=== PATIENT | male | born 1960 | race Caucasian/White ===

== ENCOUNTER 2018-05-17 12:06 | Emergency (ER) | payer OTHER ==
[~2018-05-17] VITALS: Ht 182.9 cm; Wt 106.6 kg
[~2018-05-17 12:06] MED LIST: AMLO5TAB2 PO; BSC10SU PR; DCS100C PO; DZPM2T PO; ENXP30I.3 SC; IBP600T1 PO; IPRA3AMP19 IH; LOSA100T16 PO; MAGN-47 PO; NFGUAR168P PO; OXYC-272 PO
--- NOTE | 2018-05-17 13:22 | NUR ---
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
--- NOTE | 2018-05-17 13:53 | Diagnostic Imaging Report ---
INDICATION: Crush injury. FINDINGS: There is transversely oriented full-thickness fracture of the distal neck of the proximal phalanx of the fifth finger. The distal fragment of the proximal phalanx is believed to be rotated 90 degrees dorsally. The middle and distal phalanges are intact. There are extensive soft tissue irregularities about the finger greatest along the level of the shaft of the middle phalanx. The terminal tuft is intact. The metacarpophalangeal joint is unremarkable. IMPRESSION: Full-thickness transversely oriented extra-articular fracture of the distal neck of the proximal phalanx of the fifth finger with its distal fragment believed to be rotated 90 degrees dorsally. Soft tissue irregularities. No retained opaque foreign body. Remaining osseous structures intact. Dictated by: Dictated on workstation # [id number]
[2018-05-17] MEDS ORDERED: CEPHALEXIN 250 MG (KEFLEX) CAP PO ONE (14:15)
[2018-05-17] MEDS ORDERED: LIDOCAINE 1% INJ 20 ML 20 ML VIAL INJ ONE (14:15)
[2018-05-17] MEDS ORDERED: ACHD5005 PO (14:37)
[2018-05-17] MEDS ORDERED: CEPH-507 PO (14:37)
--- NOTE | 2018-05-17 14:39 | ED Upper Extremity ---
General Chief Complaint: Upper Extremity Stated Complaint: FINGER INJ Nursing Triage Note: AT 0830 THIS AM, PT DROPPED @150LBS PIPE ON R-5TH FINGER. DRESSING IN PLACE AT THIS TIME PER URGENT CARE. PT HERE FROM URGENT CARE TO SEEK ORTHO CARE Nursing Sepsis Screen: No Definite Risk Source: patient Exam Limitations: no limitations History of Present Illness Date Seen by Provider: May 17, 2018 Time Seen by Provider: 12:59 Initial Comments 57 year old male who was sent to the emergency room from [facility] for further evaluation of his fracture of his right 5th finger. He reports that at 0830 this am he was at work when a 150lb pipe dropped and then it rolled off of his finger. He denies pain at this time. He has full movement of right fifth finger. He has a 1cm laceration to the [place] surface of his right 5th finger. Denies other injuries. Onset: this morning Pain/Injury Location: right 5th finger Method of Injury: direct blow Modifying Factors: Worse With Movement Allergies and Home Medications Allergies Coded Allergies: No Known Drug Allergies (Unverified , 08/05/10) Home Medications Amlodipine Besylate 5 Mg Tablet, 5 MG PO DAILY, (Reported) Cephalexin 500 Mg Capsule, 500 MG PO QID Prescribed by: JOHANA MENDEZ on 05/17/18 1437 Diazepam 2 Mg Tab, 2 EACH PO TID PRN, (Reported) Docusate Sodium 100 Mg Capsule, 100 MG PO BID, (Reported) Guar Gum 6 Oz Powder, 4 GM PO BID, (Reported) Hydrocodone Bit/Acetaminophen 1 Tab Tab, 1-2 EACH PO Q6H PRN for PAIN-MODERATE Prescribed by: JOHANA MENDEZ on 05/17/18 1437 Ibuprofen 600 Mg Tablet, 1 EACH PO QID PRN, (Reported) Losartan Potassium 100 Mg Tablet, 1 EACH PO DAILY, (Reported) Magnesium Hydroxide 400 Mg/5 Ml Oral.susp, 10 ML PO DAILY PRN, (Reported) Oxycodone Hcl/Acetaminophen 1 Tab Tablet, 1-2 TAB PO Q4H PRN, (Reported) Patient Home Medication List Home Medication List Reviewed: Yes Review of Systems Constitutional: see HPI; No chills, No fever Musculoskeletal: see HPI, joint pain (right 5th finger.) Skin: see HPI, other (laceration) All Other Systems Reviewed Negative Unless Noted: Yes Past Uehnydh-Uvovtu-Oozrrt Hx Past Med/Social Hx: Reviewed Nursing Past Med/Soc Hx Patient Social History Alcohol Use: Denies Use Recreational Drug Use: No Smoking Status: Unknown if Ever Smoked Recent Foreign Travel: No Contact w/Someone Who Travel: No Recent Infectious Disease Expo: No Recent Hopitalizations: Yes Past Medical History Surgeries: Yes Respiratory: Yes Cardiac: Yes Neurological: Yes Reproductive Disorders: No Gastrointestinal: No Musculoskeletal: Yes Endocrine: No Blood Disorders: No Family Medical History Reviewed Nursing Family Hx Physical Exam Vital Signs Vital Signs - First Documented 05/17/18 05/17/18 12:50 15:05 Temp 97.8 Pulse 72 Resp 18 B/P (MAP) 144/87 (106) Pulse Ox 99 O2 Delivery Room Air Capillary Refill : Less Than 3 Seconds Height, Weight, BMI Height: 6'" Weight: 235lbs. oz. 106.563405nf; BMI Method:Stated General Appearance: WD/WN, no apparent distress Cardiovascular: normal peripheral pulses, regular rate, rhythm, no edema, no gallop, no JVD, no murmur Respiratory: chest non-tender, lungs clear, normal breath sounds, no respiratory distress, no accessory muscle use Hand: Right (5th finger), laceration (1cm laceration to the [place] surface of the 5th finger. see images.), limited ROM Neurologic/Tendon: normal sensation, normal motor functions, normal tendon functions, responds to pain, no evidence tendon injury Neurologic/Psychiatric: alert, normal mood/affect, oriented x 3 Skin: normal color, warm/dry Procedures/Interventions Wound Location: Upper Extremities Other Wound Location pan[place] surface of right 5th finger Wound Length (cm): 1 Wound's Depth, Shape: superficial, linear Wound Explored: clean Irrigated w/ Saline (ccs): 200 Betadine Prep?: Yes Anesthesia: 1% Lidocaine Volume Anesthetic (ccs): 2 Suture: Prolene Suture Size: 4-0 Number of Sutures: 3 Progress The wound was anesthetized with 2ml of lidocaine with out epi and thoroughly irrigated with Betasept, Betadine and normal saline. The wound was closed with 3 simple interrupted sutures of 4-0 Prolene. Sterile dressing of Triple abx, telfa, soft roll was applied. Finger was placed in Alumafoam splint. Progress/Results/Core Measures Results/Orders My Orders Medications Given in ED Vital Signs/I&O Blood Pressure Mean: 106 Progress Progress Note : Time: 14:00 Progress Note I have seen and evaluated the patient. I have sent images and discussed the case with Dr. Blanca reservation clerk ortho and he then consulted Dr. Lizarraga hand surgeon who recommended irrigating the wound and closing the laceration loosely , placing the patient on antibiotics and having the patient follow up in his office Sunday. Dr. Blanca also recommended calling [facility] to discuss with reservation clerk ortho and Dr. Mundo Kyle Ortho recommended irrigating and closing the wound and having the patient follow up with hand surgeon of his choosing on Sunday. I have informed the patient of plan of care, plans for discharge, return precautions were given. The patient was placed in a finger splint until follow up. He agrees with plan of care. Diagnostic Imaging Diagonstic Imaging: Xray Plain Films/CT/US/NM/MRI: hand Comments NAME: [facility] REC#: [id number] PT STATUS: DEP ER : 1960 PHYSICIAN: JOHANA MENDEZ ADMIT DATE: 05/17/18/ER Signed Date of Exam: 05/17/18 FINGER(S) INDICATION: Crush injury. FINDINGS: There is transversely oriented full-thickness fracture of the distal neck of the proximal phalanx of the fifth finger. The distal fragment of the proximal phalanx is believed to be rotated 90 degrees dorsally. The middle and distal phalanges are intact. There are extensive soft tissue irregularities about the finger greatest along the level of the shaft of the middle phalanx. The terminal tuft is intact. The metacarpophalangeal joint is unremarkable. IMPRESSION: Full-thickness transversely oriented extra-articular fracture of the distal neck of the proximal phalanx of the fifth finger with its distal fragment believed to be rotated 90 degrees dorsally. Soft tissue irregularities. No retained opaque foreign body. Remaining osseous structures intact. Dictated by: Dictated on workstation # [id number] Dict: 05/17/18 1335 Trans: 05/17/181651 Interpreted by: VALERIE MOORE Electronically signed by: VALERIE MOORE 05/17/181651 Reviewed: Reviewed by Me Departure Impression Primary Impression: Finger fracture, right Qualified Codes: S62.636B - Displaced fracture of distal phalanx of right little finger, initial encounter for open fracture Disposition: 01 HOME, SELF-CARE Condition: Stable/Unchanged Departure-Patient Inst. Decision time for Depature: 14:35 Referrals: DANIELA LIZARRAGA FLOYD R MD (PCP/Family) Primary Care Physician Patient Instructions: Finger Fracture (DC) Add. Discharge Instructions: Take medications as directed. Ice to the sore areas at 20 minute intervals. Wear the splint at all times. Change the dressing twice a day. Return back to the emergency room for worsening symptoms, pain, signs of infection such as increased redness, swelling, drainage, pain, or any other concerns as needed. Call Dr. Lizarraga's office first thing Sunday morning for an appointment time. All discharge instructions reviewed with patient and/or family. Voiced understanding. Scripts Cephalexin (Keflex) 500 Mg Capsule 500 MG PO QID for 10 Days, #40 CAP Prov: JOHANA MENDEZ 05/17/18 Hydrocodone Bit/Acetaminophen (Hydrocodone/Acetaminophen 5/325mg Tablet) 1 Tab Tab 1-2 EACH PO Q6H PRN for PAIN-MODERATE MDD 10, #20 TAB Prov: JOHANA MENDEZ 05/17/18 Images Extremities-Upper 1 - Laceration Copy Copies To 1: DANIELA LIZARRAGA TRAVIS May 17, 2018 14:38
[2018-05-17 15:05] VITALS: BP 144/87
== END 2018-05-17 15:04 | disposition home or self-care (01) ==
LOC: EDUNIT# 12:06 → ER 12:07
DX: S62.636A Displaced fracture of distal phalanx of right little finger, initial encounter for closed fracture (principal); W23.1XXA Caught, crushed, jammed, or pinched between stationary objects, initial encounter; Y92.59 Other trade areas as the place of occurrence of the external cause; Y99.0 Civilian activity done for income or pay
CPT/HCPCS: 12001; 29130; 73140

== ENCOUNTER 2022-04-10 17:45 | Inpatient (IN) | payer BC, OTHER ==
[~2022-04-10] VITALS: Ht 182.9 cm; Wt 76.7 kg
[~2022-04-10 17:45] MED LIST changes: +ACHD5005 PO; +CEPH-507 PO
[2022-04-10] MEDS ORDERED: hydrALAZINE (APESOLINE) 20 MG/ML VIAL IV ONE ×3 (18:30→21:30)
[2022-04-10] MEDS ORDERED: amLODIPine 10 MG (NORVASC) TAB PO ONE (18:30)
[2022-04-10 18:31] LABS: BASOPHILS # (AUTO) 0.1 10^3/uL (0.0-0.1); BASOPHILS % (AUTO) 1 % (0-10); EOSINOPHILS % (AUTO) 0 % (0-10); HEMATOCRIT 44 % (40-54); HEMOGLOBIN 14.6 g/dL (13.3-17.7); LYMPHOCYTES # (AUTO) 2.2 10^3/uL (1.0-4.0); LYMPHOCYTES % (AUTO) 26 % (12-44); MEAN CORPUSCULAR HEMOGLOBIN 31 pg (25-34); MEAN CORPUSCULAR HGB CONC 34 g/dL (32-36); MEAN CORPUSCULAR VOLUME 92 fL (80-99); MEAN PLATELET VOLUME 10.4 fL (9.0-12.2); MONOCYTES # (AUTO) 0.9 10^3/uL (0.0-1.0); MONOCYTES % (AUTO) 10 % (0-12); NEUTROPHILS # (AUTO) 5.4 10^3/uL (1.8-7.8); NEUTROPHILS % (AUTO) 63 % (42-75); PLATELET COUNT 186 10^3/uL (130-400); WHITE BLOOD COUNT 8.6 10^3/uL (4.3-11.0)
[2022-04-10 18:47] LABS: CLARITY,URINE CLEAR; COLOR,URINE YELLOW; GLUCOSE, URINE (UA) NEGATIVE (NEGATIVE); KETONES,URINE TRACE (NEGATIVE); LEUKOCYTE ESTERASE ,URINE NEGATIVE (NEGATIVE); NITRITE,URINE NEGATIVE (NEGATIVE); PH,URINE 5.5 (5-9); PROTEIN,URINE 3+ (NEGATIVE)
[2022-04-10 18:49] LABS: ALBUMIN 3.7 GM/DL (3.2-4.5); POTASSIUM 3.9 MMOL/L (3.6-5.0)
[2022-04-10 18:50] LABS: CALCIUM 9.7 MG/DL (8.5-10.1)
[2022-04-10 18:52] LABS: TOTAL PROTEIN 7.5 GM/DL (6.4-8.2)
[2022-04-10 18:53] LABS: BILIRUBIN,TOTAL 0.9 MG/DL (0.1-1.0)
[2022-04-10 18:55] LABS: CREATININE SERUM 1.34 MG/DL (0.60-1.30)
[2022-04-10 18:56] LABS: BILIRUBIN,URINE 1+ (NEGATIVE)
[2022-04-10 18:57] LABS: BACTERIA,URINE NEGATIVE /HPF; RBC,URINE RARE /HPF; WBC,URINE RARE /HPF
--- NOTE | 2022-04-10 18:59 | Diagnostic Imaging Report ---
EXAMINATION: Chest 1 view HISTORY: Hypertension COMPARISON: None available. FINDINGS: Heart size is normal with prominence of the pulmonary vasculature. There are perihilar interstitial opacities present. No significant pleural effusion or pneumothorax. The osseous structures are intact. IMPRESSION: 1. Findings of pulmonary vasculature congestion with perihilar opacities. Facts favor pulmonary edema although pneumonia could cause a similar appearance in the appropriate clinical setting. Dictated by: Dictated on workstation # [id number]
[2022-04-10] MEDS ORDERED: NITROGLYCERIN 2% OINT 1 GM UNIT DOSE PACKET TOP ONE (19:30)
--- NOTE | 2022-04-10 19:36 | ED General ---
General Chief Complaint: Cardiac/General Problems Stated Complaint: ELEVATED BP Nursing Triage Note: patient ambulatory to ER w c/o high blood pressure. patient was seen at [facility] for concern for weightloss where they discovered the hypertension and advised he go to the ER. patient has lost over 65 pounds in the last year without trying. lack of appetite and energy. Source of Information: Patient Exam Limitations: No Limitations History of Present Illness Date Seen by Provider: Apr 10, 2022 Time Seen by Provider: 18:12 Initial Comments Here with report of 65 pound weight loss over the last year. Has not been seeing a doctor regularly recently and for the last several years. Has known hy pertension that is uncontrolled. States he previously was on amlodipine and losartan. Patient was concerned because of the weight loss that that is getting much more significant. He went to [facility] today and has appointment scheduled for a month and a half to establish care. He is worried mostly about the weight loss. Denies headache, fever, chills, nausea, vomiting, diarrhea or chest pain. Reports that he has markedly decreased appetite and is not sure what that is from. He is going to the bathroom okay. He smokes cigars but otherwise does not smoke, drink or use any drugs. No family history of significant for cancer but there is for diabetes. Timing/Duration: Other (1 year) Severity: Moderate Associated Systoms: No Cough, No Fever/Chills; Loss of Appetite; No Nausea/Vomiting, No Shortness of Air, No Weakness Allergies and Home Medications Allergies Coded Allergies: No Known Drug Allergies (Unverified , 08/05/10) Patient Home Medication List Home Medication List Reviewed: Yes Amlodipine Besylate (Amlodipine Besylate) 5 Mg Tablet, 5 MG PO DAILY, (Reported) Entered as Reported by: BA HALEY on 08/07/10 1003 Cephalexin (Keflex) 500 Mg Capsule, 500 MG PO QID Prescribed by: JOHANA MENDEZ on 05/17/18 1437 Diazepam (Valium 2 Mg Tab) 2 Mg Tab, 2 EACH PO TID PRN, (Reported) Entered as Reported by: BA HALEY on 08/07/10 1003 Docusate Sodium (Colace) 100 Mg Capsule, 100 MG PO BID, (Reported) Entered as Reported by: BA HALEY on 08/07/10 1003 Guar Gum (Benefiber (From Dietary, Do Not Enter On Apr)) 6 Oz Powder, 4 GM PO BID, (Reported) Entered as Reported by: BA HALEY on 08/07/10 100 Hydrocodone Bit/Acetaminophen (Lortab 5 Mg Tablet) 1 Tab Tab, 1-2 EACH PO Q6H PRN for PAIN-MODERATE Prescribed by: JOHANA MENDEZ on 05/17/18 1437 Ibuprofen (Motrin Tablet) 600 Mg Tablet, 1 EACH PO QID PRN, (Reported) Entered as Reported by: AGUSTINA DIAS on 08/11/10 1009 Losartan Potassium (Cozaar) 100 Mg Tablet, 1 EACH PO DAILY, (Reported) Entered as Reported by: BA HALEY on 08/07/10 1003 Magnesium Hydroxide (Milk Of Magnesia) 400 Mg/5 Ml Oral.susp, 10 ML PO DAILY PRN, (Reported) Entered as Reported by: BA HALEY on 08/07/10 100 Oxycodone Hcl/Acetaminophen (Percocet 10-325 Mg Tablet) 1 Tab Tablet, 1-2 TAB PO Q4H PRN, (Reported) Entered as Reported by: BA HALEY on 08/07/10 1003 Review of Systems Review of Systems Constitutional: No chills, No fever EENTM: no symptoms reported Respiratory: No cough, No short of breath Cardiovascular: No chest pain, No edema Gastrointestinal: loss of appetite; No nausea, No vomiting Genitourinary: no symptoms reported Musculoskeletal: No back pain, No muscle pain Skin: no symptoms reported Psychiatric/Neurological: No Symptoms Reported Past Ibnygfe-Tsriel-Zwzucw Hx Patient Social History Tobacco Use?: Yes Tobacco type used: Cigars Smoking Status: Current Everyday Smoker Substance use?: No Alcohol Use?: Yes Alcohol type: Beer Alcohol Frequency: Rarely Immunizations Up To Date COVID19 Vaccine Glue Bone Crusher: nazario Past Medical History Surgeries: Yes Respiratory: Yes Cardiac: Yes Neurological: Yes Reproductive Disorders: No Gastrointestinal: No Musculoskeletal: Yes Endocrine: No Blood Disorders: No Family Medical History Reviewed Nursing Family Hx Physical Exam Vital Signs Vital Signs - First Documented 04/10/22 04/10/22 17:57 19:30 Temp 36.2 Pulse 96 Resp 20 B/P (MAP) 222/126 (158) Pulse Ox 94 O2 Delivery Room Air Capillary Refill : Less Than 3 Seconds Height, Weight, BMI Height: 6'" Weight: 235lbs. oz. 106.679758lh; 23.00 BMI Method:Stated General Appearance: No Apparent Distress, WD/WN HEENT: PERRL/EOMI, Pharynx Normal Neck: Non Tender, Supple Respiratory: Lungs Clear, Normal Breath Sounds Cardiovascular: Regular Rate, Rhythm, No Murmur Gastrointestinal: Non Tender, Soft Back: Normal Inspection, No CVA Tenderness, No Vertebral Tenderness Extremity: Normal Range of Motion, Non Tender Neurologic/Psychiatric: Alert, Oriented x3 Procedures/Interventions Suture Size: 4-0 Progress/Results/Core Measures Suspected Sepsis SIRS Temperature: Pulse: 96 Respiratory Rate: 20 Laboratory Tests 04/10/22 18:20: White Blood Count 8.6 Blood Pressure 222 /126 Mean: 158 Laboratory Tests 04/10/22 18:20: Creatinine 1.34H, Platelet Count 186, Total Bilirubin 0.9 Results/Orders Lab Results Laboratory Tests Test 04/10/22 18:20 04/10/22 18:35 Range/Units White Blood Count 8.6 4.3-11.0 10^3/uL Red Blood Count 4.72 4.30-5.52 10^6/uL Hemoglobin 14.6 13.3-17.7 g/dL Hematocrit 44 40-54 % Mean Corpuscular Volume 92 80-99 fL Mean Corpuscular Hemoglobin 31 25-34 pg Mean Corpuscular Hemoglobin Concent 34 32-36 g/dL Red Cell Distribution Width 14.0 10.0-14.5 % Platelet Count 186 130-400 10^3/uL Mean Platelet Volume 10.4 9.0-12.2 fL Immature Granulocyte % (Auto) 0 % Neutrophils (%) (Auto) 63 42-75 % Lymphocytes (%) (Auto) 26 12-44 % Monocytes (%) (Auto) 10 0-12 % Eosinophils (%) (Auto) 0 0-10 % Basophils (%) (Auto) 1 0-10 % Neutrophils # (Auto) 5.4 1.8-7.8 10^3/uL Lymphocytes # (Auto) 2.2 1.0-4.0 10^3/uL Monocytes # (Auto) 0.9 0.0-1.0 10^3/uL Eosinophils # (Auto) 0.0 0.0-0.3 10^3/uL Basophils # (Auto) 0.1 0.0-0.1 10^3/uL Immature Granulocyte # (Auto) 0.0 0.0-0.1 10^3/uL Sodium Level 139 135-145 MMOL/L Potassium Level 3.9 3.6-5.0 MMOL/L Chloride Level 105 98-107 MMOL/L Carbon Dioxide Level 20 L 21-32 MMOL/L Anion Gap 14 5-14 MMOL/L Blood Urea Nitrogen 25 H 7-18 MG/DL Creatinine 1.34 H 0.60-1.30 MG/DL Estimat Glomerular Filtration Rate 60 BUN/Creatinine Ratio 19 Glucose Level 95 70-105 MG/DL Calcium Level 9.7 8.5-10.1 MG/DL Corrected Calcium 9.9 8.5-10.1 MG/DL Total Bilirubin 0.9 0.1-1.0 MG/DL Aspartate Amino Transf (AST/SGOT) 25 5-34 U/L Alanine Aminotransferase (ALT/SGPT) 26 0-55 U/L Alkaline Phosphatase 106 40-136 U/L Troponin I 0.085 H <0.028 NG/ML B-Type Natriuretic Peptide 1106.6 H <100.0 PG/ML Total Protein 7.5 6.4-8.2 GM/DL Albumin 3.7 3.2-4.5 GM/DL Urine Color YELLOW Urine Clarity CLEAR Urine pH 5.5 5-9 Urine Specific Sterling >=1.030 1.016-1.022 Urine Protein 3+ H NEGATIVE Urine Glucose (UA) NEGATIVE NEGATIVE Urine Ketones TRACE H NEGATIVE Urine Nitrite NEGATIVE NEGATIVE Urine Bilirubin 1+ H NEGATIVE Urine Urobilinogen 1.0 < = 1.0 MG/DL Urine Leukocyte Esterase NEGATIVE NEGATIVE Urine RBC (Auto) 1+ H NEGATIVE Urine RBC RARE /HPF Urine WBC RARE /HPF Urine Squamous Epithelial Cells NONE /HPF Urine Crystals NONE /LPF Urine Bacteria NEGATIVE /HPF Urine Casts PRESENT /LPF Urine Hyaline Casts 5-10 H /LPF Urine Mucus NEGATIVE /LPF Urine Culture Indicated NO My Orders Orders - ASH IBARRA MD Ed Iv/Invasive Line Start (04/10/22 18:25) Ekg Tracing (04/10/22 18:25) Monitor-Rhythm Ecg Trace Only (04/10/22 18:25) Chest 1 View, Ap/Pa Only (04/10/22 18:25) Bnp Manjeet (04/10/22 18:25) Cbc With Automated Diff (04/10/22 18:25) Comprehensive Metabolic Panel (04/10/22 18:25) Troponin I Manjeet (04/10/22 18:25) Ua Culture If Indicated (04/10/22 18:25) Amlodipine Tablet (Norvasc Tablet) (04/10/22 18:30) Hydralazine Injection (Apresoline Inject (04/10/22 18:30) Hydralazine Injection (Apresoline Inject (04/10/22 19:30) Nitroglycerin Ointment (Nitrobid Ointme (04/10/22 19:30) Furosemide Injection (Lasix Injection) (04/10/22 20:18) Aspirin Chewable Tablet (Baby Aspirin Ch (04/10/22 20:45) Metoprolol Succinate (Xl) Tab (Toprol Xl (04/10/22 20:45) Potassium Chloride (Tablet) (K Dur Table (04/10/22 20:45) Code/Resuscitation (04/10/22 21:18) Ed Admission (Communication) (04/10/22 21:19) Medications Given in ED Current Medications Medications Dose Ordered Sig/Evangelina Route Start Time Stop Time Status Last Admin Dose Admin Amlodipine Besylate 10 mg ONCE ONCE PO 04/10/22 18:30 04/10/22 18:31 DC 04/10/22 18:37 10 MG Aspirin 324 mg ONCE ONCE PO 04/10/22 20:45 04/10/22 20:46 DC 04/10/22 20:43 324 MG Hydralazine HCl 10 mg ONCE ONCE IV 04/10/22 18:30 04/10/22 18:31 DC 04/10/22 18:37 10 MG Hydralazine HCl 10 mg ONCE ONCE IV 04/10/22 19:30 04/10/22 19:31 DC 04/10/22 19:26 10 MG Metoprolol Succinate 100 mg ONCE ONCE PO 04/10/22 20:45 04/10/22 20:46 DC 04/10/22 20:53 100 MG Nitroglycerin 1 inch ONCE ONCE TOP 04/10/22 19:30 04/10/22 19:32 DC 04/10/22 19:55 1 INCH Potassium Chloride 20 meq ONCE ONCE PO 04/10/22 20:45 04/10/22 20:46 DC 04/10/22 20:43 20 MEQ Vital Signs/I&O 04/10/22 04/10/22 04/10/22 04/10/22 17:57 19:30 20:00 20:45 Temp 36.2 Pulse 96 102 107 100 Resp 20 20 20 18 B/P (MAP) 222/126 (158) 207/113 (144) 196/107 (136) 214/119 (150) Pulse Ox 94 93 94 O2 Delivery Room Air Room Air Room Air Capillary Refill : Less Than 3 Seconds Blood Pressure Mean: 158 Progress Note : Progress Note Seen and evaluated. IV, labs including CBC, CMP, troponin, BNP and UA ordered. EKG and chest x-ray ordered. Further imaging considered but we will hold pending initial evaluation. Further imaging could include CT of the chest, abdomen and pelvis depending on chest x-ray findings. Patient has markedly elevated blood pressure in the range of 220s over 140s with MAP of 179. Amlodipine 10 mg p.o. and hydralazine 10 mg IV ordered. Monitor patient. Differential includes uncontrolled hypertension, cardiac disease, electrolyte abnormality, neoplasm 1929: Labs reviewed and BNP is elevated as well as troponin. We will go ahead and give repeat hydralazine 10 mg IV as his blood pressure remains elevated. We will also initiate nitroglycerin paste 1 inch topical now. Patient has findings consistent with heart failure and hypertensive urgency with mild troponin elevation. Chest x-ray evaluated by me and does show findings of pulmonary vascular congestion. No obvious mass noted. Radiology report pending. Patient will need admission for heart failure and elevated troponin. On review of labs, CBC is grossly normal. CMP shows normal electrolytes with normal LFTs teas with troponin at 0.085 and BNP of 1106. UA does show 3+ proteins and trace ketones. 2025: I have discussed the case with Dr Fabian, unit reactor operator on-call. He is recommending metoprolol XL 100 mg p.o. now and daily. We will go ahead and do Lasix 20 mEq p.o. now as well as Lasix 40 mg IV and aspirin 324 mg p.o. now and continue 81 mg daily. I did discuss the case with Dr. West, on-call for [facility] hospitalist service. She is excepted the patient for admission, inpatient status to the ICU. We will continue hydralazine 20 mg every 4 hours as needed f or hypertension uncontrolled as needed. I did discuss all of this with the patient and family who are agree with admission. 2119: Blood pressure still over 200 systolic. I will repeat hydralazine 10 mg IV now. He is not having no chest pain. ECG Initial ECG Impression Date: Apr 10, 2022 Initial ECG Impression Time: 18:29 Initial ECG Rate: 96 Initial ECG Rhythm: Normal Sinus Comment Sinus rhythm with left atrial abnormality and left ventricular hypertrophy. Left axis deviation. Does have anterior ST elevation which is likely LVH in lead V3. No evidence of ST elevation MD. Interpreted by me. Departure Impression Primary Impression: Malignant hypertension Additional Impressions: Elevated troponin Acute heart failure Qualified Codes: I50.9 - Heart failure, unspecified Disposition: ADMITTED INPATIENT Condition: Stable Admissions Decision to Admit Reason: Admit from ER (General) Decision to Admit/Date: Apr 10, 2022 Time/Decision to Admit Time: 20:26 Departure-Patient Inst. Referrals: [facility] (PCP/Family) Primary Care Physician ASH IBARRA MD Apr 10, 2022 19:36
[2022-04-10] MEDS ORDERED: FUROSEMIDE 40 MG/4 ML INJ (LASIX) IV STA (20:18)
[2022-04-10] MEDS ORDERED: ASPIRIN 81 MG CHEW (CHILDREN'S ASA) PO ONE (20:45)
[2022-04-10] MEDS ORDERED: meTOprolol SUCCINATE 100 MG (TOPROL XL) TAB PO ONE (20:45)
[2022-04-10] MEDS ORDERED: KCL 20 MEQ TAB (K-DUR) PO ONE (20:45)
[2022-04-10] MEDS ORDERED: NS IV 500 ML 500 ML IV PRN (22:30)
[2022-04-10] MEDS ORDERED: hydrALAZINE (APESOLINE) 20 MG/ML VIAL IV PRN (22:30)
--- NOTE | 2022-04-10 23:55 | Tele-ICU Progress Note ---
Progress Note 61M with COPD, ongoing smoker, HTN admitted for hypertensive urgency. He initially presented to [facility] to establish care after not seeing MD for several years due to concerns for unintentional weight loss of 65 pounds over the past year. On intake evaluation, BP was markedly elevated and he was sent to ED for evaluation. On ED arrival, BP 226/126. Given norvasck 10 mg, metoprolol 100 mg, nitropaste 1 inch and a total of 30 mg hydralazine (10 mg x3 doses). On arrival to ICU BP was 160, but fell into the 110s before rebounding. Now 176/103. - hypertensive urgency: long standing untreated hypertension. Goal BP 160-180 for tonight. PRN hydralazine. - weight loss: given extensive smoking history and lack of age appropriate screening, concerning for malignancy. CXR with vascular congestion, but can not exclude poorly defined mass or bulky lymphadenopathy. Will send for CT chest/abd/pel for screening. Send CEA with AM labs. Would like to send PSA as well, but system will not let me order for inpatient. - BNP elevation: with perihilar congestion and vascular markings on CXR. Not hypoxic or symptomatic. Cardiology consulted. Echo planned for AM. Patient assessed via real-time audiovisual monitoring system. CCT 12 min Focused Exam Height, Weight, BMI Height: 6'" Weight: 235lbs. oz. 106.701462tg; 22.50 BMI Method:Stated JAROCHO RIOS MD Apr 10, 2022 23:55
[2022-04-11 04:25] LABS: BASOPHILS # (AUTO) 0.1 10^3/uL (0.0-0.1); BASOPHILS % (AUTO) 1 % (0-10); EOSINOPHILS # (AUTO) 0.3 10^3/uL (0.0-0.3); EOSINOPHILS % (AUTO) 4 % (0-10); HEMATOCRIT 41 % (40-54); HEMOGLOBIN 13.4 g/dL (13.3-17.7); LYMPHOCYTES # (AUTO) 2.3 10^3/uL (1.0-4.0); LYMPHOCYTES % (AUTO) 30 % (12-44); MEAN CORPUSCULAR HEMOGLOBIN 31 pg (25-34); MEAN CORPUSCULAR HGB CONC 33 g/dL (32-36); MEAN CORPUSCULAR VOLUME 94 fL (80-99); MEAN PLATELET VOLUME 10.8 fL (9.0-12.2); MONOCYTES % (AUTO) 13 % (0-12); NEUTROPHILS # (AUTO) 3.9 10^3/uL (1.8-7.8); NEUTROPHILS % (AUTO) 52 % (42-75); PLATELET COUNT 184 10^3/uL (130-400); WHITE BLOOD COUNT 7.5 10^3/uL (4.3-11.0)
[2022-04-11 04:43] LABS: ALBUMIN 3.2 GM/DL (3.2-4.5); BILIRUBIN,TOTAL 0.6 MG/DL (0.1-1.0); CALCIUM 9.3 MG/DL (8.5-10.1); CREATININE SERUM 1.22 MG/DL (0.60-1.30); MAGNESIUM 1.8 MG/DL (1.6-2.4); PHOSPHORUS 4.1 MG/DL (2.3-4.7); POTASSIUM 3.9 MMOL/L (3.6-5.0); TOTAL PROTEIN 6.6 GM/DL (6.4-8.2)
[2022-04-11] MEDS ORDERED: KCL 20 MEQ TAB (K-DUR) PO ONE (05:00)
[2022-04-11] MEDS: MAGNESIUM 1 GM/100 ML IVPB 100 ML IV SCH ×3 (05:15→07:00)
--- NOTE | 2022-04-11 06:27 | Diagnostic Imaging Report ---
PROCEDURE: CT chest, abdomen, and pelvis without contrast. TECHNIQUE: Multiple contiguous axial images were obtained through the chest, abdomen, and pelvis without the use of intravenous contrast. Auto Exposure Controls were utilized during the CT exam to meet ALARA standards for radiation dose reduction. INDICATION: Hypertension. Abdominal pain. 65 pound unintentional weight loss. COMPARISON: None. CT chest: The heart size is within normal limits. Trace pericardial effusion is present. There is calcified aortic and coronary atherosclerotic plaque without aneurysm. There is no mediastinal, hilar, or axillary lymphadenopathy. A small right-sided pleural effusion is seen. Bibasilar opacities are present. No focal mass or suspicious pulmonary nodules. No central endobronchial obstructing lesions. No pneumothorax. No acute osseous abnormalities. CT abdomen and pelvis: A nonobstructing calculus is seen in the mid left kidney measuring 3 mm. No obstructing calculi or hydronephrosis. The urinary bladder is nondistended. There is bladder wall thickening. The liver, spleen, pancreas, and adrenal glands have a normal noncontrast CT appearance. The gallbladder is decompressed. There is no pathologically enlarged mesenteric or retroperitoneal adenopathy. The bowel loops are nondilated. There is no free fluid or free air. No acute osseous abnormalities. There is grade 1 anterolisthesis of L4 on L5. Calcified aortic and iliac atherosclerotic plaque is seen without aneurysm. There is no free air, loculated collection, or adenopathy in the pelvis. IMPRESSION: 1. Small right-sided pleural effusion with small amount of bibasilar opacities. 2. Nonobstructing calculus in the mid left kidney measuring 3 mm. No obstructing calculi or hydronephrosis. 3. Bladder wall thickening, which can be seen with inadequate distention versus cystitis. Recommend correlation with UA. Agree with overnight report. Dictated by: Dictated on workstation # [id number]
[2022-04-11] MEDS ORDERED: CATHETER FLUSH 10 ML SYR IVP PRN (06:45)
[2022-04-11] MEDS ORDERED: FUROSEMIDE 40 MG/4 ML INJ (LASIX) IVP SCH (07:00)
[2022-04-11] MEDS: POTASSIUM CL 10MEQ/50ML IVPB 50 ML IV SCH (08:03)
[2022-04-11] MEDS: KCL 20 MEQ TAB (K-DUR) PO SCH (08:04)
--- NOTE | 2022-04-11 08:26 | Consultation-Cardiology ---
HPI-Cardiology Cardiology Consultation: Date of Consultation 04/11/22 Time Seen by a Provider: 08:35 Date of Admission 04-10-22 Attending Physician [facility] Admitting Physician Admitting Physician: Geena West MD Attending Physician: Geena West MD Consulting Physician Sarita Fabian MD HPI: Chief Complaint: Elevated troponin HTN Mr. Bear is a 61 yr old male admitted to ICU 2 from the ED. He reports he has not seen a health care provider in several years. He reports yesterday he decided to establish care with a PCP and went to [facility]. He was evaluated there and noted to have high blood pressure; he was then sent to the [facility] ED. He reports he has a h/o high blood pressure for which he previously was on amlodipine/losartan combination, but has not taken this medication in well over a year. He reports he has had an approx 65 lb weight loss, which he states the first 45 lbs was intentional, however, he states once he started losing weight it continued to come off. He reports poor appetite. He reports some chronic mild MURRIETA which has been present for several years. No c/o CP or palpitations. No c/o LE swelling. No c/o n/v/d. No c/o fever or chills. He smokes cigars approx 1-2 daily. Review of Systems-Cardiology Review of Systems Constitutional: No chills, No fever, No malaise Eyes: No vision change Ears/Nose/Throat: No epistaxis, No recent hearing loss Respiratory: As described under HPI Cardiovascular: As described under HPI Gastrointestinal: As described under HPI Genitourinary: No dysuria, No hematuria Musculoskeletal: no symptoms reported Skin: No rash on exposed areas, No ulcerations on exposed areas Psychiatric/Neurological: No anxiety, No depression, No seizure, No focal weakness, No syncope Hematologic: No bleeding abnormalities [id number] Hx Patient Social History Smoking Status: Current Everyday Smoker Have you traveled recently?: No Alcohol Use?: Yes Pt feels they are or have been: No Tobacco type used: Cigars Past Medical History PMH As described under Assessment. Family Medical History Family Medical History: He reports his father had CAD with CABG and stents in his 60's. Allergies and Home Medications Allergies Coded Allergies: No Known Drug Allergies (Unverified , 08/05/10) Patient Home Medication List No Active Prescriptions or Reported Meds Physical Exam-Cardiology Physical Exam Vital Signs/I&O 04/11/22 04/11/22 04/11/22 04/11/22 05:00 06:00 07:00 07:26 Pulse 74 65 73 64 B/P (MAP) 154/97 (114) 162/84 (100) 173/116 (135) Pulse Ox 96 93 96 O2 Delivery Room Air Room Air Room Air 04/11/22 04/11/22 04/11/22 04/11/22 08:00 08:00 09:00 10:00 Pulse 72 66 57 B/P (MAP) 170/93 (118) 167/99 (121) 171/118 (135) Pulse Ox 94 93 96 95 O2 Delivery Room Air Room Air Room Air Room Air 04/11/22 04/11/22 04/11/22 04/11/22 11:00 12:00 12:00 12:51 Pulse 64 57 63 B/P (MAP) 176/83 (114) 171/102 (125) Pulse Ox 96 94 95 O2 Delivery Room Air Room Air Room Air 04/11/22 04/11/22 04/11/22 13:00 14:00 15:00 Pulse 71 60 61 B/P (MAP) 186/115 (138) 130/78 (95) 133/79 (97) Pulse Ox 96 95 93 O2 Delivery Room Air Room Air Room Air Capillary Refill : Less Than 3 Seconds Constitutional: AAO x 3, well-developed, other (thin appearing) HEENT: PERRL, oral hygience is good Neck: No carotid bruit; carotid pulses are 2 + bilaterally Respiratory: No accessory muscle use, No respiratory distress; chest expansion is symmetric, chest is bilaterally symmetric, other (scattered rhonchi; diminished lower lobes bilat) Cardiovascular: regular rate-rhythm; No JVD; S1 and S2 Gastrointestinal: No tender; soft, audible bowel sounds Extremities: no lower extremity edema bilateral Neurologic/Psychiatric: grossly intact (moves all extremities) Skin: No rash on exposed areas, No ulcerations on exposed areas Data Review Labs Laboratory Tests 04/10/22 18:20: White Blood Count 8.6, Red Blood Count 4.72, Hemoglobin 14.6, Hematocrit 44, Mean Corpuscular Volume 92, Mean Corpuscular Hemoglobin 31, Mean Corpuscular Hemoglobin Concent 34, Red Cell Distribution Width 14.0, Platelet Count 186, Mean Platelet Volume 10.4, Immature Granulocyte % (Auto) 0, Neutrophils (%) (Auto) 63, Lymphocytes (%) (Auto) 26, Monocytes (%) (Auto) 10, Eosinophils (%) (Auto) 0, Basophils (%) (Auto) 1, Neutrophils # (Auto) 5.4, Lymphocytes # (Auto) 2.2, Monocytes # (Auto) 0.9, Eosinophils # (Auto) 0.0, Basophils # (Auto) 0.1, Immature Granulocyte # (Auto) 0.0, Sodium Level 139, Potassium Level 3.9, Chloride Level 105, Carbon Dioxide Level 20L, Anion Gap 14, Blood Urea Nitrogen 25H, Creatinine 1.34H, Estimat Glomerular Filtration Rate 60, BUN/Creatinine Ratio 19, Glucose Level 95, Calcium Level 9.7, Corrected Calcium 9.9, Total Bilirubin 0.9, Aspartate Amino Transf (AST/SGOT) 25, Alanine Aminotransferase (ALT/SGPT) 26, Alkaline Phosphatase 106, Troponin I 0.085H, B-Type Natriuretic Peptide 1106.6H, Total Protein 7.5, Albumin 3.7 04/10/22 18:35: Urine Color YELLOW, Urine Clarity CLEAR, Urine pH 5.5, Urine Specific [place]ola >=1.030, Urine Protein 3+H, Urine Glucose (UA) NEGATIVE, Urine Ketones TRACEH, Urine Nitrite NEGATIVE, Urine Bilirubin 1+H, Urine Urobilinogen 1.0, Urine Leukocyte Esterase NEGATIVE, Urine RBC (Auto) 1+H, Urine RBC RARE, Urine WBC RARE, Urine Squamous Epithelial Cells NONE, Urine Crystals NONE, Urine Bacteria NEGATIVE, Urine Casts PRESENT, Urine Hyaline Casts 5-10H, Urine Mucus NEGATIVE, Urine Culture Indicated NO 04/11/22 04:11: White Blood Count 7.5, Red Blood Count 4.34, Hemoglobin 13.4, Hematocrit 41, Mean Corpuscular Volume 94, Mean Corpuscular Hemoglobin 31, Mean Corpuscular Hemoglobin Concent 33, Red Cell Distribution Width 14.3, Platelet Count 184, Mean Platelet Volume 10.8, Immature Granulocyte % (Auto) 0, Neutrophils (%) (Auto) 52, Lymphocytes (%) (Auto) 30, Monocytes (%) (Auto) 13H, Eosinophils (%) (Auto) 4, Basophils (%) (Auto) 1, Neutrophils # (Auto) 3.9, Lymphocytes # (Auto) 2.3, Monocytes # (Auto) 1.0, Eosinophils # (Auto) 0.3, Basophils # (Auto) 0.1, Immature Granulocyte # (Auto) 0.0, Sodium Level 141, Potassium Level 3.9, Chloride Level 105, Carbon Dioxide Level 24, Anion Gap 12, Blood Urea Nitrogen 31H, Creatinine 1.22, Estimat Glomerular Filtration Rate 67, BUN/Creatinine Ratio 25, Glucose Level 90, Calcium Level 9.3, Corrected Calcium 9.9, Total Bilirubin 0.6, Aspartate Amino Transf (AST/SGOT) 26, Alanine Aminotransferase (ALT/SGPT) 24, Alkaline Phosphatase 90, Total Protein 6.6, Albumin 3.2, Phosphorus Level 4.1, Magnesium Level 1.8, Triglycerides Level 107, Cholesterol Level 179, LDL Cholesterol Direct 75, VLDL Cholesterol 21, HDL Cholesterol 61H, Thyroid Stimulating Hormone (TSH) 0.86 04/11/22 09:20: Troponin I 0.127H Microbiology 04/10/22 MRSA Screen - Final, Complete MRSA not isolated Radiology NAME: BECKA BEAR [facility] REC#: [id number] PT STATUS: REG ER : 1960 PHYSICIAN: ASH IBARRA MD ADMIT DATE: 04/10/22/ER Signed Date of Exam:04/10/22 CHEST 1 VIEW, AP/PA ONLY EXAMINATION: Chest 1 view HISTORY: Hypertension COMPARISON: None available. FINDINGS: Heart size is normal with prominence of the pulmonary vasculature. There are perihilar interstitial opacities present. No significant pleural effusion or pneumothorax. The osseous structures are intact. IMPRESSION: 1. Findings of pulmonary vasculature congestion with perihilar opacities. Facts favor pulmonary edema although pneumonia could cause a similar appearance in the appropriate clinical setting. Dictated by: Dictated on workstation # [id number] Dict: 04/10/221854 Trans: 04/10/221902 [facility] [id number] Interpreted by: CAMILO SAENZ DO Electronically signed by: CAMILO SAENZ DO 04/10/221902 NAME: BECKA BEAR [facility] REC#: [id number] PT STATUS: ADM IN : 1960 PHYSICIAN: JAROCHO RIOS MD ADMIT DATE: 04/10/22/ICU Signed Date of Exam:04/11/22 CT CHEST/ABDOMEN/PELVIS WO PROCEDURE: CT chest, abdomen, and pelvis without contrast. TECHNIQUE: Multiple contiguous axial images were obtained through the chest, abdomen, and pelvis without the use of intravenous contrast. Auto Exposure Controls were utilized during the CT exam to meet ALARA standards for radiation dose reduction. INDICATION: Hypertension. Abdominal pain. 65 pound unintentional weight loss. COMPARISON: None. CT chest: The heart size is within normal limits. Trace pericardial effusion is present. There is calcified aortic and coronary atherosclerotic plaque without aneurysm. There is no mediastinal, hilar, or axillary lymphadenopathy. A small right-sided pleural effusion is seen. Bibasilar opacities are present. No focal mass or suspicious pulmonary nodules. No central endobronchial obstructing lesions. No pneumothorax. No acute osseous abnormalities. CT abdomen and pelvis: A nonobstructing calculus is seen in the mid left kidney measuring 3 mm. No obstructing calculi or hydronephrosis. The urinary bladder is nondistended. There is bladder wall thickening. The liver, spleen, pancreas, and adrenal glands have a normal noncontrast CT appearance. The gallbladder is decompressed. There is no pathologically enlarged mesenteric or retroperitoneal adenopathy. The bowel loops are nondilated. There is no free fluid or free air. No acute osseous abnormalities. There is grade 1 anterolisthesis of L4 on L5. Calcified aortic and iliac atherosclerotic plaque is seen without aneurysm. There is no free air, loculated collection, or adenopathy in the pelvis. IMPRESSION: 1. Small right-sided pleural effusion with small amount of bibasilar opacities. 2. Nonobstructing calculus in the mid left kidney measuring 3 mm. No obstructing calculi or hydronephrosis. 3. Bladder wall thickening, which can be seen with inadequate distention versus cystitis. Recommend correlation with UA. Agree with overnight report. Dictated by: Dictated on workstation # [id number] Dict: 04/11/22 0620 Trans: 04/11/22 0628 [facility] [id number] Interpreted by: JING DAILEY DO Electronically signed by: JING DAILEY DO 04/11/22 0628 ECG Impression ECG Comment SR with LVH A/P-Cardiology Assessment/Admission Diagnosis NSTEMI vs Type 2 MD secondary to uncontrolled HTN Uncontrolled HTN CHF - new onset Probable COPD Tobaccoism - cigars Family h/o CAD - father h/o stents and CABG in his 60's Discussion and Recomendations NSTEMI vs Type 2 MD secondary to uncontrolled HTN - continue ASA - continue BB - titrate as indicated/tolerated New onset CHF - treat with diuretics - echocardiogram today Tobaccoism - cessation advised Unexplained weight loss - management per medical services Further recs will be based on his hospital course We would like to thank medical services for this consult LEWIS WALLIS Apr 11, 2022 08:26
--- NOTE | 2022-04-11 09:13 | History & Physical ---
HPI History of Present Illness: 61 yo male went to [facility] trying to get healthcare restarted, found out his blood pressure was sam high. Didn't know it was so high, but did know he wasn't feeling well. Had been losing weight most of the last year, down from 245 lb. At first was glad, then started getting concerned due to how much weight he has lost. Appetite is still poor. Denies headache, chest pain, fevers, night sweats. Was on HTN meds in past, had been off for around 12-14 months after primary care doctor retired, his script ran out. Source: patient Date seen by provider: Apr 11, 2022 Time Seen by Provider: 09:09 Attending Physician [facility] PCP Admitting Physician: Destinee Schroeder MD Attending Physician: Destinee Schroeder MD Consult Date of Admission Apr 10, 2022 at 22:09 Home Medications Home Medications Reviewed patient Home Medication Reconciliation performed by pharmacy medication reconciliations certified master safe technician and/or nursing. Patients Allergies have been reviewed. Allergies Coded Allergies: No Known Drug Allergies (Unverified , 08/05/10) CUJ-Xnccyr-Vnbpar Hx Patient Social History Smoking Status: Current Everyday Smoker Recent Hopitalizations: Yes Alcohol Use?: Yes Tobacco type used: Cigars Have you traveled recently?: No Immunizations Up To Date Influenza Vaccine Up-to-Date: No; Not Current COVID19 Vaccine Bias Binding Folder: MODERNA Past Medical History PMHx: HTN SurgHx: Double tib fib fracture repair with multiple surgeries Family Medical History Significant Family History: Heart Disease, Cancer (sister breast), Diabetes Review of Systems ([facility]) Constitutional: No fever; malaise, weakness, weight loss EENTM: No nose congestion, No throat pain Respiratory: No cough, No short of breath Cardiovascular: No chest pain Gastrointestinal: No abdominal pain, No constipation, No diarrhea; loss of appetite; No melena, No nausea, No vomiting Genitourinary: No dysuria, No hesitancy Musculoskeletal: joint pain (chronic) Skin: No rash Psychiatric/Neurological: Denies Anxiety, Denies Depressed Reviewed Test Results Reviewed Test Results Lab Laboratory Tests Test 04/10/22 18:20 04/10/22 18:35 04/11/22 04:11 Range/Units White Blood Count 8.6 7.5 4.3-11.0 10^3/uL Red Blood Count 4.72 4.34 4.30-5.52 10^6/uL Hemoglobin 14.6 13.4 13.3-17.7 g/dL Hematocrit 44 41 40-54 % Mean Corpuscular Volume 92 94 80-99 fL Mean Corpuscular Hemoglobin 31 31 25-34 pg Mean Corpuscular Hemoglobin Concent 34 33 32-36 g/dL Red Cell Distribution Width 14.0 14.3 10.0-14.5 % Platelet Count 186 184 130-400 10^3/uL Mean Platelet Volume 10.4 10.8 9.0-12.2 fL Immature Granulocyte % (Auto) 0 0 % Neutrophils (%) (Auto) 63 52 42-75 % Lymphocytes (%) (Auto) 26 30 12-44 % Monocytes (%) (Auto) 10 13 H 0-12 % Eosinophils (%) (Auto) 0 4 0-10 % Basophils (%) (Auto) 1 1 0-10 % Neutrophils # (Auto) 5.4 3.9 1.8-7.8 10^3/uL Lymphocytes # (Auto) 2.2 2.3 1.0-4.0 10^3/uL Monocytes # (Auto) 0.9 1.0 0.0-1.0 10^3/uL Eosinophils # (Auto) 0.0 0.3 0.0-0.3 10^3/uL Basophils # (Auto) 0.1 0.1 0.0-0.1 10^3/uL Immature Granulocyte # (Auto) 0.0 0.0 0.0-0.1 10^3/uL Sodium Level 139 141 135-145 MMOL/L Potassium Level 3.9 3.9 3.6-5.0 MMOL/L Chloride Level 105 105 98-107 MMOL/L Carbon Dioxide Level 20 L 24 21-32 MMOL/L Anion Gap 14 12 5-14 MMOL/L Blood Urea Nitrogen 25 H 31 H 7-18 MG/DL Creatinine 1.34 H 1.22 0.60-1.30 MG/DL Estimat Glomerular Filtration Rate 60 67 BUN/Creatinine Ratio 19 25 Glucose Level 95 90 70-105 MG/DL Calcium Level 9.7 9.3 8.5-10.1 MG/DL Corrected Calcium 9.9 9.9 8.5-10.1 MG/DL Total Bilirubin 0.9 0.6 0.1-1.0 MG/DL Aspartate Amino Transf (AST/SGOT) 25 26 5-34 U/L Alanine Aminotransferase (ALT/SGPT) 26 24 0-55 U/L Alkaline Phosphatase 106 90 40-136 U/L Troponin I 0.085 H <0.028 NG/ML B-Type Natriuretic Peptide 1106.6 H <100.0 PG/ML Total Protein 7.5 6.6 6.4-8.2 GM/DL Albumin 3.7 3.2 3.2-4.5 GM/DL Urine Color YELLOW Urine Clarity CLEAR Urine pH 5.5 5-9 Urine Specific [place] >=1.030 1.016-1.022 Urine Protein 3+ H NEGATIVE Urine Glucose (UA) NEGATIVE NEGATIVE Urine Ketones TRACE H NEGATIVE Urine Nitrite NEGATIVE NEGATIVE Urine Bilirubin 1+ H NEGATIVE Urine Urobilinogen 1.0 < = 1.0 MG/DL Urine Leukocyte Esterase NEGATIVE NEGATIVE Urine RBC (Auto) 1+ H NEGATIVE Urine RBC RARE /HPF Urine WBC RARE /HPF Urine Squamous Epithelial Cells NONE /HPF Urine Crystals NONE /LPF Urine Bacteria NEGATIVE /HPF Urine Casts PRESENT /LPF Urine Hyaline Casts 5-10 H /LPF Urine Mucus NEGATIVE /LPF Urine Culture Indicated NO Phosphorus Level 4.1 2.3-4.7 MG/DL Magnesium Level 1.8 1.6-2.4 MG/DL Triglycerides Level 107 <150 MG/DL Cholesterol Level 179 < 200 MG/DL LDL Cholesterol Direct 75 1-129 MG/DL VLDL Cholesterol 21 5-40 MG/DL HDL Cholesterol 61 H 40-60 MG/DL Thyroid Stimulating Hormone (TSH) 0.86 0.35-4.94 UIU/ML Radiology NAME: BECKA [facility]AR [facility] REC#: [id number] PT STATUS: REG ER : 1960 PHYSICIAN: ASH IBARRA MD ADMIT DATE: 04/10/22/ER Signed Date of Exam:04/10/22 CHEST 1 VIEW, AP/PA ONLY EXAMINATION: Chest 1 view HISTORY: Hypertension COMPARISON: None available. FINDINGS: Heart size is normal with prominence of the pulmonary vasculature. There are perihilar interstitial opacities present. No significant pleural effusion or pneumothorax. The osseous structures are intact. IMPRESSION: 1. Findings of pulmonary vasculature congestion with perihilar opacities. Facts favor pulmonary edema although pneumonia could cause a similar appearance in the appropriate clinical setting. Dictated by: Dictated on workstation # [id number] Dict: 04/10/221854 Trans: 04/10/221902 [facility] [id number] Interpreted by: CAMILO SAENZ DO Electronically signed by: CAMILO SAENZ DO 04/10/221902 NAME: BECKA [facility] REC#: [id number] PT STATUS: ADM IN : 1960 PHYSICIAN: JAROCHO RIOS MD ADMIT DATE: 04/10/22/ICU Signed Date of Exam:04/11/22 CT CHEST/ABDOMEN/PELVIS WO PROCEDURE: CT chest, abdomen, and pelvis without contrast. TECHNIQUE: Multiple contiguous axial images were obtained through the chest, abdomen, and pelvis without the use of intravenous contrast. Auto Exposure Controls were utilized during the CT exam to meet ALARA standards for radiation dose reduction. INDICATION: Hypertension. Abdominal pain. 65 pound unintentional weight loss. COMPARISON: None. CT chest: The heart size is within normal limits. Trace pericardial effusion is present. There is calcified aortic and coronary atherosclerotic plaque without aneurysm. There is no mediastinal, hilar, or axillary lymphadenopathy. A small right-sided pleural effusion is seen. Bibasilar opacities are present. No focal mass or suspicious pulmonary nodules. No central endobronchial obstructing lesions. No pneumothorax. No acute osseous abnormalities. CT abdomen and pelvis: A nonobstructing calculus is seen in the mid left kidney measuring 3 mm. No obstructing calculi or hydronephrosis. The urinary bladder is nondistended. There is bladder wall thickening. The liver, spleen, pancreas, and adrenal glands have a normal noncontrast CT appearance. The gallbladder is decompressed. There is no pathologically enlarged mesenteric or retroperitoneal adenopathy. The bowel loops are nondilated. There is no free fluid or free air. No acute osseous abnormalities. There is grade 1 anterolisthesis of L4 on L5. Calcified aortic and iliac atherosclerotic plaque is seen without aneurysm. There is no free air, loculated collection, or adenopathy in the pelvis. IMPRESSION: 1. Small right-sided pleural effusion with small amount of bibasilar opacities. 2. Nonobstructing calculus in the mid left kidney measuring 3 mm. No obstructing calculi or hydronephrosis. 3. Bladder wall thickening, which can be seen with inadequate distention versus cystitis. Recommend correlation with UA. Agree with overnight report. Dictated by: Dictated on workstation # [id number] Dict: 04/11/22619 Trans: 04/11/22627 [facility] [phone] Interpreted by: JING DAILEY DO Electronically signed by: JING DAILEY DO 04/11/2228 Physical Exam-([facility]) Physical Exam Vital Signs VS - Last 72 Hours, by Label 04/10/22 04/10/22 04/10/22 04/10/22 17:57 19:30 20:00 20:45 Temp 36.2 Pulse 96 102 107 100 Resp 20 20 20 18 B/P (MAP) 222/126 (158) 207/113 (144) 196/107 (136) 214/119 (150) Pulse Ox 94 93 94 O2 Delivery Room Air Room Air Room Air 04/10/22 04/10/22 04/10/22 04/10/22 21:00 22:15 22:18 22:30 Pulse 100 88 88 86 Resp 18 B/P (MAP) 164/83 (110) 160/84 (108) 120/84 (98) Pulse Ox 95 93 95 O2 Delivery Room Air Room Air Room Air 04/10/22 04/10/22 04/10/22 04/10/22 22:30 22:31 22:45 23:00 Pulse 102 84 81 Resp 20 B/P (MAP) 152/85 125/82 (106) 164/86 (115) Pulse Ox 93 98 94 93 O2 Delivery Room Air Room Air Room Air Room Air 04/10/22 04/10/22 04/10/22 04/11/22 23:15 23:30 23:59 00:00 Pulse 90 93 82 B/P (MAP) 179/102 (120) 176/103 (117) 169/91 (115) Pulse Ox 92 92 92 92 O2 Delivery Room Air Room Air Room Air Room Air 04/11/22 04/11/22 04/11/22 04/11/22 01:00 01:00 02:48 03:00 Pulse 81 81 75 77 B/P (MAP) 155/94 (123) 157/93 (119) Pulse Ox 94 92 95 O2 Delivery Room Air Room Air Room Air 04/11/22 04/11/22 04/11/22 04/11/22 04:00 04:00 05:00 06:00 Pulse 73 74 65 B/P (MAP) 157/97 (117) 154/97 (114) 162/84 (100) Pulse Ox 92 95 96 93 O2 Delivery Room Air Room Air Room Air Room Air 04/11/22 04/11/22 04/11/22 04/11/22 07:00 07:26 08:00 08:00 Pulse 73 64 72 B/P (MAP) 173/116 (135) 170/93 (118) Pulse Ox 96 94 93 O2 Delivery Room Air Room Air Room Air 04/11/22 04/11/22 04/11/22 04/11/22 09:00 10:00 11:00 12:00 Pulse 66 57 64 B/P (MAP) 167/99 (121) 171/118 (135) 176/83 (114) Pulse Ox 96 95 96 94 O2 Delivery Room Air Room Air Room Air Room Air 04/11/22 04/11/22 04/11/22 04/11/22 12:00 12:51 13:00 14:00 Pulse 57 63 71 60 B/P (MAP) 171/102 (125) 186/115 (138) 130/78 (95) Pulse Ox 95 96 95 O2 Delivery Room Air Room Air Room Air Capillary Refill : Less Than 3 Seconds General Appearance: no apparent distress, thin Respiratory: lungs clear, normal breath sounds Cardiovascular: regular rate, rhythm, no edema, no murmur Gastrointestinal: normal bowel sounds, non tender, soft; No mass Neurologic/Psychiatric: alert, normal mood/affect, oriented x 3 Skin: normal color, warm/dry Lymphatic: other (no epitrochloear or supraclavicular lymphadenopathy; b ilateral cervical palpable lymph nodes just under angle of jaw) Assessment/Plan Assessment/Plan Admission Status: Inpatient Order (span 2 midnights) Reason for Inpatient Admission: Severe hypertension (1) Malignant hypertension Assessment & Plan: Known history of HTN, off medication for some time. Markedly improved with nitropaste, hydralazine and metoprolol in ER. (2) Acute heart failure Status: Acute Assessment & Plan: BNP elevated, CXR consistent with pulmonary edema. Cardiology consulted, IV lasix BID ordered and echo ordered. Appreciate Cardiology recommendations. Qualifiers: Qualified Codes: I50.9 - Heart failure, unspecified (3) Elevated troponin Status: Acute Assessment & Plan: Possibly demand ischemia given HTN, Cardiology consulted, appreciate recommendations. (4) DANIELE (acute kidney injury) Status: Acute Assessment & Plan: Suspect secondary to hypertensive emergency, improving. (5) Unintentional weight loss Status: Acute Assessment & Plan: CT C/A/P ordered by [facility] ICU overnight with no significant findings to explain. Needs scopes done at some point. A1c pending. (6) DVT prophylaxis Status: Acute Assessment & Plan: Enoxaparin DESTINEE SCHROEDER MD Apr 11, 2022 09:13
[2022-04-11] MEDS: meTOprolol SUCCINATE 100 MG (TOPROL XL) TAB PO SCH (09:24)
[2022-04-11] MEDS: ASPIRIN 325 MG (5 GR) TABLET PO SCH (09:24)
[2022-04-11] MEDS: ENOXAPARIN 40 MG/0.4 ML (LOVENOX) SYR SC SCH (09:25)
[2022-04-11] MEDS ORDERED: amLODIPine 10 MG (NORVASC) TAB PO NR (09:30)
[2022-04-11] MEDS ORDERED: SPIRONOLACTONE 25 MG (ALDACTONE) TAB PO NR (11:00)
[2022-04-11] MEDS ORDERED: REGADENOSON 0.4 MG/5 ML SYR (LEXISCAN) IV ONE (11:15)
--- NOTE | 2022-04-11 12:24 | Tele-ICU Progress Note ---
Subjective Date Seen by a Provider: Apr 11, 2022 Time Seen by a Provider: 12:24 Subjective/Events-last exam (Tele-ICU Physician , Progress Note ) Service provided via interactive audio and video telecommunications E-CARE system to a patient admitted to ICU bed in [facility]. Patient is seen today due to persistent need of ICU care Available chart/ vitals / labs / Images reviewed Video assessment done using teleICU camera, rest of exam as per RN Discussed with RN Events overnight : Afebrile hemodynamically stable Respiratory - I/O = Drips: Pressors- no Hospital course: A/P Hypertensive urgency: -long standing untreated hypertension. -Goal BP 160- for today - PO started -PRN hydralazine - ECHO pending DANIELE - improved - received lasix - US renal pending - weight loss: given extensive smoking history and lack of age appropriate screening, concerning for malignancy. CXR with vascular congestion, but can not exclude poorly defined mass or bulky lymphadenopathy. Will send for CT chest/abd/pel for screening. Send CEA with AM labs. Would like to send PSA as well, but system will not let me order for inpatient. - BNP elevation: with perihilar congestion and vascular markings on CXR. Not hypoxic or symptomatic. Cardiology consulted. Echo planned for AM. Lines : periph , (Central Line Necessity Reviewed) Foreman: void OG: Nutrition: Analgesia: Anxiety/ delirium VTE Prophylaxis: layne 40 Stress Ulcer Prophylaxis: Plans in collaboration with bedside consultants and IM MDs. Discussed with RN to reach out if any questions or concerns A total of 20 minutes of critical care time was devoted to this patient today, required to treat and/or prevent further deterioration of critical care condition ( as above ) . I am remotely monitoring this patient from another state. I am unable to do the bedside exam, and history/physical and pertinent information is taken from other notes in the computer and bedside staff. Sepsis Event Evaluation Height, Weight, BMI Height: 6'" Weight: 235lbs. oz. 106.446751lk; 22.80 BMI Method:Stated Exam Exam Patient acknowledged, consented, and participated in this virtual visit which was conducted using real time audio/video Vital Signs Date Time Temp Pulse Resp B/P (MAP) Pulse Ox O2 Delivery O2 Flow Rate FiO2 04/11/22 11:00 64 176/83 (114) 96 Room Air 04/11/22 10:00 57 171/118 (135) 95 Room Air 04/11/22 09:00 66 167/99 (121) 96 Room Air 04/11/22 08:00 72 170/93 (118) 93 Room Air 04/11/22 08:00 94 Room Air 04/11/22 07:26 64 04/11/22 07:00 73 173/116 (135) 96 Room Air 04/11/22 06:00 65 162/84 (100) 93 Room Air 04/11/22 05:00 74 154/97 (114) 96 Room Air 04/11/22 04:00 73 157/97 (117) 95 Room Air 04/11/22 04:00 92 Room Air 04/11/22 03:00 77 157/93 (119) 95 Room Air 04/11/22 02:48 75 155/94 (123) 92 Room Air 04/11/22 01:00 81 94 Room Air 04/11/22 01:00 81 04/11/22 00:00 82 169/91 (115) 92 Room Air 04/10/22 23:59 92 Room Air 04/10/22 23:30 93 176/103 (117) 92 Room Air 04/10/22 23:15 90 179/102 (120) 92 Room Air 04/10/22 23:00 81 164/86 (115) 93 Room Air 04/10/22 22:45 84 125/82 (106) 94 Room Air 04/10/22 22:31 102 20 152/85 98 Room Air 04/10/22 22:30 93 Room Air 04/10/22 22:30 86 120/84 (98) 95 Room Air 04/10/22 22:18 88 04/10/22 22:15 88 160/84 (108) 93 Room Air 04/10/22 21:00 100 18 164/83 (110) 95 Room Air 04/10/22 20:45 100 18 214/119 (150) 94 04/10/22 20:00 107 20 196/107 (136) 93 Room Air 04/10/22 19:30 102 20 207/113 (144) 94 Room Air 04/10/22 17:57 36.2 96 20 222/126 (158) Room Air I & O 04/11/22 07:00 Intake Total 500 ml Output Total 1250 ml Balance -750 ml Height & Weight Height: 6'" Weight: 235lbs. oz. 106.150038of; 22.80 BMI Method:Stated General Appearance: No Apparent Distress, WD/WN HEENT: PERRL/EOMI, Pharynx Normal Neck: Non Tender, Supple Respiratory: Lungs Clear, Normal Breath Sounds Cardiovascular: Regular Rate, Rhythm, No Murmur Capillary Refill: Less Than 3 Seconds Extremity: Normal Range of Motion, Non Tender Neurologic/Psychiatric: Alert, Oriented x3 Results Lab Laboratory Tests 04/10/22 18:20 04/11/22 04:11 Assessment/Plan Assessment/Plan 1 BARBI MAR MD Apr 11, 2022 12:24
--- NOTE | 2022-04-11 13:55 | Consultation-Cardiology ---
HPI-Cardiology Cardiology Consultation: Date of Consultation 04/11/22 Time Seen by a Provider: 11:15 Date of Admission Attending Physician [facility] Admitting Physician Admitting Physician: Geena West MD Attending Physician: Geena West MD Consulting Physician LOLA KENNY MD, MA, FACP, FACC, [facility], CCDS Physician requesting consult: Dr West HPI: Chief Complaint: Reason for Card consult: Severe hypertension, CHF, minimally elevated troponin Mr. Garner is a 61 yr old male admitted to ICU 2 from the ED. He reports he has not seen a health care provider in several years. He reports yesterday he decided to establish care with a PCP and went to [facility]. He was evaluated there and noted to have high blood pressure; he was then sent to the [facility] ED. He reports he has a h/o high blood pressure for which he previously was on amlodipine/losartan combination, but has not taken this medication in well over a year. He reports he has had an approx 65 lb weight loss, which he states the first 45 lbs was intentional, however, he states once he started losing weight it continued to come off. He reports poor appetite. He reports some chronic mild MURRIETA which has been present for several years. No c/o CP or palpitations. No c/o LE swelling. No c/o n/v/d. No c/o fever or chills. He smokes cigars approx 1-2 daily. Review of Systems-Cardiology Review of Systems Constitutional: No chills, No fever, No malaise Eyes: No vision change Ears/Nose/Throat: No epistaxis, No recent hearing loss Respiratory: As described under HPI Cardiovascular: As described under HPI Gastrointestinal: As described under HPI Genitourinary: No dysuria, No hematuria Musculoskeletal: no symptoms reported Skin: No rash on exposed areas, No ulcerations on exposed areas Psychiatric/Neurological: No anxiety, No depression, No seizure, No focal weakness, No syncope Hematologic: No bleeding abnormalities NQD-Ivyztt-Kglwhw Hx Patient Social History Smoking Status: Current Everyday Smoker Have you traveled recently?: No Alcohol Use?: Yes Pt feels they are or have been: No Tobacco type used: Cigars Past Medical History PMH As described under Assessment. Family Medical History Family Medical History: He reports his father had CAD with CABG and stents in his 60's. Allergies and Home Medications Allergies Coded Allergies: No Known Drug Allergies (Unverified , 08/05/10) Patient Home Medication List Home Medication List Reviewed: Yes No Active Prescriptions or Reported Meds Physical Exam-Cardiology Physical Exam Vital Signs/I&O 04/11/22 04/11/22 04/11/22 04/11/22 02:48 03:00 04:00 04:00 Pulse 75 77 73 B/P (MAP) 155/94 (123) 157/93 (119) 157/97 (117) Pulse Ox 92 95 92 95 O2 Delivery Room Air Room Air Room Air Room Air 04/11/22 04/11/22 04/11/22 04/11/22 05:00 06:00 07:00 07:26 Pulse 74 65 73 64 B/P (MAP) 154/97 (114) 162/84 (100) 173/116 (135) Pulse Ox 96 93 96 O2 Delivery Room Air Room Air Room Air 04/11/22 04/11/22 04/11/22 04/11/22 08:00 08:00 09:00 10:00 Pulse 72 66 57 B/P (MAP) 170/93 (118) 167/99 (121) 171/118 (135) Pulse Ox 94 93 96 95 O2 Delivery Room Air Room Air Room Air Room Air 04/11/22 04/11/22 04/11/22 04/11/22 11:00 12:00 12:00 12:51 Pulse 64 57 63 B/P (MAP) 176/83 (114) 171/102 (125) Pulse Ox 96 94 95 O2 Delivery Room Air Room Air Room Air Capillary Refill : Less Than 3 Seconds Constitutional: AAO x 3, well-developed, other (thin appearing) HEENT: PERRL, oral hygience is good Neck: No carotid bruit; carotid pulses are 2 + bilaterally Respiratory: No accessory muscle use, No respiratory distress; chest expansion is symmetric, chest is bilaterally symmetric, other (scattered rhonchi; diminished lower lobes bilat) Cardiovascular: regular rate-rhythm; No JVD; S1 and S2 Gastrointestinal: No tender; soft, audible bowel sounds Extremities: no lower extremity edema bilateral Neurologic/Psychiatric: grossly intact (moves all extremities) Skin: No rash on exposed areas, No ulcerations on exposed areas Data Review Labs Laboratory Tests 04/10/22 18:20: White Blood Count 8.6, Red Blood Count 4.72, Hemoglobin 14.6, Hematocrit 44, Mean Corpuscular Volume 92, Mean Corpuscular Hemoglobin 31, Mean Corpuscular Hemoglobin Concent 34, Red Cell Distribution Width 14.0, Platelet Count 186, Mean Platelet Volume 10.4, Immature Granulocyte % (Auto) 0, Neutrophils (%) (Auto) 63, Lymphocytes (%) (Auto) 26, Monocytes (%) (Auto) 10, Eosinophils (%) (Auto) 0, Basophils (%) (Auto) 1, Neutrophils # (Auto) 5.4, Lymphocytes # (Auto) 2.2, Monocytes # (Auto) 0.9, Eosinophils # (Auto) 0.0, Basophils # (Auto) 0.1, I mmature Granulocyte # (Auto) 0.0, Sodium Level 139, Potassium Level 3.9, Chloride Level 105, Carbon Dioxide Level 20L, Anion Gap 14, Blood Urea Nitrogen 25H, Creatinine 1.34H, Estimat Glomerular Filtration Rate 60, BUN/Creatinine Ratio 19, Glucose Level 95, Calcium Level 9.7, Corrected Calcium 9.9, Total Bilirubin 0.9, Aspartate Amino Transf (AST/SGOT) 25, Alanine Aminotransferase (ALT/SGPT) 26, Alkaline Phosphatase 106, Troponin I 0.085H, B-Type Natriuretic Peptide 1106.6H, Total Protein 7.5, Albumin 3.7 04/10/22 18:35: Urine Color YELLOW, Urine Clarity CLEAR, Urine pH 5.5, Urine Specific [place] >=1.030, Urine Protein 3+H, Urine Glucose (UA) NEGATIVE, Urine Ketones TRACEH, Urine Nitrite NEGATIVE, Urine Bilirubin 1+H, Urine Urobilinogen 1.0, Urine Leukocyte Esterase NEGATIVE, Urine RBC (Auto) 1+H, Urine RBC RARE, Urine WBC RARE, Urine Squamous Epithelial Cells NONE, Urine Crystals NONE, Urine Bacteria NEGATIVE, Urine Casts PRESENT, Urine Hyaline Casts 5-10H, Urine Mucus NEGATIVE, Urine Culture Indicated NO 04/11/22 04:11: White Blood Count 7.5, Red Blood Count 4.34, Hemoglobin 13.4, Hematocrit 41, Mean Corpuscular Volume 94, Mean Corpuscular Hemoglobin 31, Mean Corpuscular Hemoglobin Concent 33, Red Cell Distribution Width 14.3, Platelet Count 184, Mean Platelet Volume 10.8, Immature Granulocyte % (Auto) 0, Neutrophils (%) (Auto) 52, Lymphocytes (%) (Auto) 30, Monocytes (%) (Auto) 13H, Eosinophils (%) (Auto) 4, Basophils (%) (Auto) 1, Neutrophils # (Auto) 3.9, Lymphocytes # (Auto) 2.3, Monocytes # (Auto) 1.0, Eosinophils # (Auto) 0.3, Basophils # (Auto) 0.1, Immature Granulocyte # (Auto) 0.0, Sodium Level 141, Potassium Level 3.9, Chloride Level 105, Carbon Dioxide Level 24, Anion Gap 12, Blood Urea Nitrogen 31H, Creatinine 1.22, Estimat Glomerular Filtration Rate 67, BUN/Creatinine Ratio 25, Glucose Level 90, Calcium Level 9.3, Corrected Calcium 9.9, Total Bilirubin 0.6, Aspartate Amino Transf (AST/SGOT) 26, Alanine Aminotransferase (ALT/SGPT) 24, Alkaline Phosphatase 90, Total Protein 6.6, Albumin 3.2, Phosphorus Level 4.1, Magnesium Level 1.8, Triglycerides Level 107, Cholesterol Level 179, LDL Cholesterol Direct 75, VLDL Cholesterol 21, HDL Cholesterol 61H, Thyroid Stimulating Hormone (TSH) 0.86 04/11/22 09:20: Troponin I 0.127H A/P-Cardiology Assessment/Admission Diagnosis Malignant hypertension as indicated by severe hypertension associated with CHF Mild troponin elevation - likely type 2 [place] due to uncontrolled hypertension and CHF Ac CHF, likely diastolic Probable COPD Tobaccoism - cigars Family h/o CAD - father h/o stents and CABG in his 60's Discussion and Recomendations * BB, amlodipine, HCTZ, and spironolactone for bp control * Echo to eval EF and valve function * MPI to eval for cor ischemia, given risk factors for CAD * Advised immediate and complete cessation of tobacco use * We recommend a w/u for wgt loss to be carried out by his pcp * We would like to thank medical services for this consult LOLA KENNY MD FACP FAC CCDS Apr 11, 2022 13:55
--- NOTE | 2022-04-11 15:03 | Diagnostic Imaging Report ---
INDICATION: Malignant hypertension. COMPARISON Limited to nonenhanced abdominal CT date 04/11/2022. FINDINGS: The kidneys are normal in volume, morphology and echotexture. The right 11.3, the left 12.7 cm. A left renal calculus nonobstructing; at the recent CT is sonographically imperceptible, likely owing to body habitus as well as some respiratory motion degradation and patient's difficulty with the requested breath holding. The renal arterial to aortic systolic velocity ratios were normal bilaterally and there were no findings of a hemodynamically significant degree of renal arterial stenosis. No overt hydronephrosis. IMPRESSION: Left kidney stone imperceptible sonographically. No overt hydronephrosis. Normal renal size, cortical thickness and echotextures with no findings of hemodynamically significant renal arterial stenosis. Dictated by: Dictated on workstation # [id number]
[2022-04-11 16:00] VITALS: BP 144/74
[2022-04-11 19:00] VITALS: BP 166/87
[2022-04-11 20:00] VITALS: BP 146/69
[2022-04-11 21:00] VITALS: BP 153/86
[2022-04-11 22:00] VITALS: BP 185/112
[2022-04-11 23:00] VITALS: BP 144/78
[2022-04-12] VITALS: BP 130/77
[2022-04-12 04:22] LABS: HEMATOCRIT 44 % (40-54); HEMOGLOBIN 14.3 g/dL (13.3-17.7); MEAN CORPUSCULAR HEMOGLOBIN 31 pg (25-34); MEAN CORPUSCULAR HGB CONC 33 g/dL (32-36); MEAN CORPUSCULAR VOLUME 94 fL (80-99); PLATELET COUNT 182 10^3/uL (130-400); WHITE BLOOD COUNT 7.1 10^3/uL (4.3-11.0)
[2022-04-12 04:57] LABS: CALCIUM 9.6 MG/DL (8.5-10.1); CREATININE SERUM 1.36 MG/DL (0.60-1.30); MAGNESIUM 1.9 MG/DL (1.6-2.4)
[2022-04-12 05:00] VITALS: BP 161/92
[2022-04-12 06:00] VITALS: BP 129/87
[2022-04-12] MEDS: POTASSIUM CL 10MEQ/50ML IVPB 50 ML IV SCH (06:00)
[2022-04-12] MEDS: MAGNESIUM 1 GM/100 ML IVPB 100 ML IV SCH (06:00)
[2022-04-12] MEDS: KCL 20 MEQ TAB (K-DUR) PO SCH (06:00)
[2022-04-12] MEDS: meTOprolol SUCCINATE 100 MG (TOPROL XL) TAB PO SCH (07:37)
[2022-04-12] MEDS: ASPIRIN 325 MG (5 GR) TABLET PO SCH (07:37)
[2022-04-12] MEDS: ENOXAPARIN 40 MG/0.4 ML (LOVENOX) SYR SC SCH (07:40)
[2022-04-12 07:44] VITALS: BP 195/104
[2022-04-12] MEDS ORDERED: amLODIPine 5 MG (NORVASC) TAB PO SCH (09:00)
[2022-04-12] MEDS ORDERED: SPIRONOLACTONE 25 MG (ALDACTONE) TAB PO SCH (09:00)
[2022-04-12] MEDS ORDERED: MTP100TCR PO (09:14)
[2022-04-12] MEDS ORDERED: ASPI-808 PO (09:14)
[2022-04-12] MEDS ORDERED: SPIR25TA5 PO (09:14)
[2022-04-12] MEDS ORDERED: HYDR25TA4 PO (09:14)
[2022-04-12] MEDS ORDERED: AMLO-250 PO (09:14)
--- NOTE | 2022-04-12 09:30 | Progress Note - Cardiology ---
Cardiology SOAP Progress Note Subjective: Upset that he couldn't get his pharm MPI this am (had had coffee) No cp or palp or syncope or shortness of breath No n/v/d No focal weakness Wishes to go home Objective: I&O/Vital Signs 04/11/22 04/11/22 04/12/22 04/12/22 22:00 23:00 00:00 04:00 Pulse 76 60 53 61 B/P (MAP) 185/112 (147) 144/78 (102) 130/77 (94) Pulse Ox 96 92 91 94 O2 Delivery Room Air Room Air Room Air Room Air 04/12/22 04/12/22 04/12/22 05:00 06:00 07:44 Temp 36.6 Pulse 59 69 67 Resp 16 B/P (MAP) 161/92 (124) 129/87 (101) 195/104 (134) Pulse Ox 94 99 O2 Delivery Room Air Room Air Room Air 04/12/22 00:00 Intake Total 680 ml Output Total 750 ml Balance -70 ml Weight (Pounds): 235 Weight (Calculated Kilograms): 106.162151 Constitutional: AAO x 3, well-developed, other (thin appearing) Respiratory: No accessory muscle use, No respiratory distress; chest expansion is symmetric, chest is bilaterally symmetric, other (scattered rhonchi; diminished lower lobes bilat) Cardiovascular: regular rate-rhythm; No JVD; S1 and S2 Gastrointestional: No tender; soft, audible bowel sounds Extremities: no lower extremity edema bilateral Neurologic/Psychiatric: grossly intact (moves all extremities) Skin: No rash on exposed areas, No ulcerations on exposed areas Results/Procedures: Labs Laboratory Tests 04/12/22 04:02: White Blood Count 7.1, Red Blood Count 4.64, Hemoglobin 14.3, Hematocrit 44, Mean Corpuscular Volume 94, Mean Corpuscular Hemoglobin 31, Mean Corpuscular Hemoglobin Concent 33, Red Cell Distribution Width 14.4, Platelet Count 182, Mean Platelet Volume 11.0, Sodium Level 139, Potassium Level 4.0, Chloride Level 102, Carbon Dioxide Level 26, Anion Gap 11, Blood Urea Nitrogen 34H, Creatinine 1.36H, Estimat Glomerular Filtration Rate 58, BUN/Creatinine Ratio 25, Glucose Level 100, Calcium Level 9.6, Magnesium Level 1.9 Microbiology 04/10/22 MRSA Screen - Final, Complete MRSA not isolated Laboratory Tests 04/10/22 18:20 04/11/22 04:11 04/12/22 04:02 A/P: Assessment: Malignant hypertension as indicated by severe hypertension associated with CHF Mild troponin elevation - likely type 2 AK due to uncontrolled hypertension and CHF Ac CHF, likely diastolic - Echo on 04/11/22: LVEF 55-60%, mild to mod biatrial enlargement, mild to mod TR & MR, PASP 45-50 mmHg Probable COPD Tobaccoism - cigars Family h/o CAD - father h/o stents and CABG in his 60's Plan: * BB, amlodipine, HCTZ, and spironolactone for bp control * Discussed echo results * Advised MPI, given risk factors for CAD, but he refuses to stay for that * Advised immediate and complete cessation of tobacco use * We recommend a w/u for wgt loss to be carried out by his pcp * I discussed his CV issues with his attending, LOLA Queen MD FACP FAC CCDS Apr 12, 2022 09:30
--- NOTE | 2022-04-12 11:15 | Tele-ICU Progress Note ---
Subjective Date Seen by a Provider: Apr 12, 2022 Time Seen by a Provider: 11:15 Subjective/Events-last exam (Tele-ICU Physician , Progress Note ) Service provided via interactive audio and video telecommunications E-CARE system to a patient admitted to ICU bed in [facility]. Patient is seen today due to persistent need of ICU care Available chart/ vitals / labs / Images reviewed Video assessment done using teleICU camera, rest of exam as per RN Discussed with RN Events overnight : Afebrile hemodynamically stable Respiratory - ra I/O = Drips: Pressors- no Hospital course: A/P Hypertensive urgency: -long standing untreated hypertension. -Goal BP 160- for today - PO started -PRN hydralazine - ECHO pending - US renal artheies 04/11 - no findings of hemodynamically significant renal arterial stenosis. Ac CHF - ECHO 04/11/22- EF 55% DANIELE - improved , now Cr 1.36 - received lasix ( off now 0 . on HCTZ and spiralonacton as per cards - follow - US renal - WNL - weight loss:CT chest/abd/pel for screening done . WNL CEA Mild troponin elevation - likely type 2 WA due to uncontrolled hypertension and CHF - as per cards smoking , / COPD - mild pulm HTN RVSP 45mmHg (\\ Lines : periph , (Central Line Necessity Reviewed) Foreman: void OG: Nutrition: Analgesia: Anxiety/ delirium VTE Prophylaxis: layne 40 Stress Ulcer Prophylaxis: Plans in collaboration with bedside consultants and IM MDs. Discussed with RN to reach out if any questions or concerns A total of 5 minutes of critical care time was devoted to this patient today, required to treat and/or prevent further deterioration of critical care condition ( as above ) . I am remotely monitoring this patient from another state. I am unable to do the bedside exam, and history/physical and pertinent information is taken from other notes in the computer and bedside staff. Sepsis Event Evaluation Height, Weight, BMI Height: 6'" Weight: 235lbs. oz. 106.400728ta; 22.92 BMI Method:Stated Exam Exam Patient acknowledged, consented, and participated in this virtual visit which was conducted using real time audio/video Vital Signs Date Time Temp Pulse Resp B/P (MAP) Pulse Ox O2 Delivery O2 Flow Rate FiO2 04/12/22 08:00 97 Room Air 04/12/22 07:44 36.6 67 16 195/104 (134) 99 Room Air 04/12/22 06:00 69 129/87 (101) Room Air 04/12/22 05:00 59 161/92 (124) 94 Room Air 04/12/22 04:00 61 94 Room Air 04/12/22 00:00 53 130/77 (94) 91 Room Air 04/11/22 23:00 60 144/78 (102) 92 Room Air 04/11/22 22:00 76 185/112 (147) 96 Room Air 04/11/22 21:00 60 153/86 (111) 96 Room Air 04/11/22 20:00 95 Room Air 04/11/22 20:00 70 146/69 (90) 95 Room Air 04/11/22 19:00 66 04/11/22 19:00 66 166/87 (113) 94 Room Air 04/11/22 16:00 58 144/74 (97) 94 Room Air 04/11/22 15:00 61 133/79 (97) 93 Room Air 04/11/22 14:00 60 130/78 (95) 95 Room Air 04/11/22 13:00 71 186/115 (138) 96 Room Air 04/11/22 12:51 63 04/11/22 12:00 57 171/102 (125) 95 Room Air 04/11/22 12:00 94 Room Air I & O 04/12/22 07:00 Intake Total 920 ml Output Total 2250 ml Balance -1330 ml Height & Weight Height: 6'" Weight: 235lbs. oz. 106.297466mz; 22.92 BMI Method:Stated General Appearance: No Apparent Distress, WD/WN HEENT: PERRL/EOMI, Pharynx Normal Neck: Non Tender, Supple Respiratory: Lungs Clear, Normal Breath Sounds Cardiovascular: Regular Rate, Rhythm, No Murmur Capillary Refill: Less Than 3 Seconds Gastrointestinal: normal bowel sounds, non tender, soft; No mass Extremity: Normal Range of Motion, Non Tender Neurologic/Psychiatric: Alert, Oriented x3 Results Lab Laboratory Tests 04/10/22 18:20 04/11/22 04:11 04/12/22 04:02 Assessment/Plan Assessment/Plan 1 BARBI MAR MD Apr 12, 2022 11:15
--- NOTE | 2022-04-12 11:27 | Discharge Summary ---
Discharge Summary Hospital Course Problems/Diagnosis: (1) Malignant hypertension Assessment & Plan: Known history of HTN, off medication for some time. Markedly improved with nitropaste, hydralazine and metoprolol in ER. 04/12 meds adjusted per Cardiology and discharged with scripts for all meds. Renal artery US okay. (2) Acute heart failure Status: Acute Assessment & Plan: BNP elevated, CXR consistent with pulmonary edema. Cardiology consulted, IV lasix BID ordered and echo ordered. Appreciate Cardiology recommendations. Echo with EF 55-60%, dilated LA, PA pressure 45-50. Plan for stress test outpatient. Qualifiers: Qualified Codes: I50.9 - Heart failure, unspecified (3) Elevated troponin Status: Acute Assessment & Plan: Possibly demand ischemia given HTN, Cardiology consulted, appreciate recommendations. Plan for stress test outpatient. (4) DANIELE (acute kidney injury) Status: Acute Assessment & Plan: Suspect secondary to hypertensive emergency, improving. (5) Unintentional weight loss Status: Acute Assessment & Plan: CT C/A/P ordered by Annalisa ICU overnight with no significant findings to explain. Needs scopes done at some point. A1c 5.5 Hospital Course Date of Admission: Apr 10, 2022 at 22:09 Admission Diagnosis : Family Physician/Provider: [place] Date of Discharge: 04/12/22 Discharge Diagnosis: See problem list Hospital Course: See problem list Labs and Pending Lab Test: Laboratory Tests 04/12/22 04:02: White Blood Count 7.1, Red Blood Count 4.64, Hemoglobin 14.3, Hematocrit 44, Mean Corpuscular Volume 94, Mean Corpuscular Hemoglobin 31, Mean Corpuscular Hemoglobin Concent 33, Red Cell Distribution Width 14.4, Platelet Count 182, Mean Platelet Volume 11.0, Sodium Level 139, Potassium Level 4.0, Chloride Level 102, Carbon Dioxide Level 26, Anion Gap 11, Blood Urea Nitrogen 34H, Creatinine 1.36H, Estimat Glomerular Filtration Rate 58, BUN/Creatinine Ratio 25, Glucose Level 100, Calcium Level 9.6, Magnesium Level 1.9 Microbiology 04/10/22 MRSA Screen - Final, Complete MRSA not isolated Home Meds Active Hydrochlorothiazide 25 Mg Tablet 25 Mg PO DAILY Aspirin 325 Mg Tablet 325 Mg PO DAILY Spironolactone 25 Mg Tablet 25 Mg PO DAILY Amlodipine Besylate 5 Mg Tablet 10 Mg PO DAILY Metoprolol Succinate 100 Mg Tab.er.24h 100 Mg PO DAILY Assessment/Pt DC Instructions Follow up with Cardiology tomorrow as planned. Follow up with primary provider within a week of discharge. Discharge Diet: Cardiac Diet Discharge Physical Examination Allergies: Coded Allergies: No Known Drug Allergies (Unverified , 08/05/10) General Appearance: No Apparent Distress, Thin Respiratory: Lungs Clear, Normal Breath Sounds Cardiovascular: Regular Rate, Rhythm, No Murmur Extremity: No Pedal Edema Skin: Normal Color, Warm/Dry Neurologic/Psychiatric: Alert, Normal Mood/Affect DESTINEE SCHROEDER MD Apr 12, 2022 11:27
[2022-04-12 11:38] VITALS: BP 165/90
[2022-04-12 12:00] VITALS: BP 143/86
--- NOTE | 2022-04-14 00:16 | Physician Query Clarification ---
PQ-Uncertain Diagnosis Admission/Discharge Admission Date: Apr 10, 2022 at 22:09 Discharge Date: Apr 12, 2022 at 12:00 DESTINEE Angel MD The medical record reflects the following clinical scenario: History/Risk Factors: 61 y/o male patient admitted with malignant hypertension, type II NM was documented in medical record. H and P, 04/10: Malignant hypertension, acute heart failure, elevated troponin likely demand ischemia. customer service consultant, 04/11: Malignant hypertension, elevated troponin likely type II NM due to uncontrolled hypertension and CHF, acute CHF likely diastolic. Cardiology progress notes, 04/12: Malignant hypertension, elevated troponin likely type II NM due to uncontrolled hypertension and CHF, acute CHF likely diastolic. Discharge summary, 04/12: Malignant hypertension, acute heart failure, elevated troponin likely demand ischemia. Clinical Findings: Troponin- 0.127 H, bnp-1106.6 H, bp-222/126 H. Treatment: BB, amlodipine, HCTZ, and spironolactone, IV lasix. Question: Is type II NM a clinically valid diagnosis? Type II NM was documented in the crop consultant, 04/11 with no further documentation in the medical record. Please document a response in Progress Note or Discharge Summary. 1. Yes, clinically valid, condition resolved. 2. No, condition ruled out. 3. Other, with explanation of clinical findings. 4. Undetermined, no explanation for clinical findings. PHYSICIAN RESPONSE Diagnosis clinically valid: Yes, Conditon resolved In responding to this query, please exercise your independent professional judgment. The purpose of this communication is to more accurately reflect the complexity of your patients condition. The fact that a question is asked does not imply that any particular answer is desired or expected. Thank you for your timely response to this clarification. Requestors name: [ ] Phone # [ ] THIS PHYSICIAN QUERY FORM IS A PERMANENT PART OF THE MEDICAL RECORD J CARLOS DUMONT Apr 14, 2022 00:16 DESTINEE SCHROEDER MD Apr 21, 2022 18:02
== END 2022-04-12 12:00 | disposition home or self-care (01) | DRG 280 ==
LOC: EDUNIT# 17:45 → ER 17:47 → ICU 22:09
PROVIDERS: ADMIT Family Medicine; ATTEND Family Medicine
DX: I11.0 Hypertensive heart disease with heart failure (principal); I50.31 Acute diastolic (congestive) heart failure; I21.A1 Myocardial infarction type 2; N17.9 Acute kidney failure, unspecified; F17.210 Nicotine dependence, cigarettes, uncomplicated; I16.0 Hypertensive urgency; R63.4 Abnormal weight loss
CPT/HCPCS: 36415; 71045; 71250; 74176; 76770; 80048; 80053; 80061; 81000; 82378; 83036; 83735; 83880; 84100; 84443; 84484; 85025; 85027; 87081; 93005; 93041; 93306; 93975; 96374; 96375; 96376

== ENCOUNTER → 2022-04-13 | Outpatient (CLI) | payer BC ==
[~2022-04-13] MED LIST changes: +AMLO-250 PO; +ASPI-808 PO; +CATHETER FLUSH 10 ML SYR IVP PRN; +HYDR25TA4 PO; +MTP100TCR PO; +REGADENOSON 0.4 MG/5 ML SYR (LEXISCAN) IV ONE; +SPIR25TA5 PO
[2022-04-13 08:04] VITALS: BP 189/94
--- NOTE | 2022-04-13 13:34 | STRESS TEST ---
DATE OF SERVICE: 04/13/2022 RESTING AND POST REGADENOSON TECHNETIUM-99M TETROFOSMIN SPECT CT IMAGING ORDERING PHYSICIAN: Janet Hensley APRN PRIMARY PHYSICIAN: [facility]. OTHER PHYSICIAN: Dr. Kenny. CLINICAL DIAGNOSIS: Shortness of breath. Baseline images were carried out after injection of 10.26 mCi technetium-99m Tetrofosmin. This was followed by 0.4 mg regadenoson and 32.1 mCi of technetium-99m Tetrofosmin for stress imaging. The electrocardiogram showed sinus rhythm with nonspecific T-wave abnormality at baseline. It did not change significantly with the regadenoson infusion. The patient had coughing and flushing following regadenoson infusion, which resolved in a few minutes. Review of images at rest and following stress indicates moderate cardiomegaly and mild to moderate global hypokinesis. Left ventricular ejection fraction is calculated to be 34%. There does not appear to be evidence of significant myocardial ischemia or infarction on this study. CONCLUSIONS: 1. No evidence of significant myocardial ischemia or infarction. 2. Dilated cardiomyopathy with moderate enlargement of the left ventricle and moderate global hypokinesis and left ventricular ejection fraction 34%. Job ID: [id number] DocumentID: [id number] Dictated Date: 04/13/2022 13:17:19 Logger Driving Horses Date: 04/13/2022 13:32:00 Dictated By: LOLA KENNY MD; MITCH; FACP; FACC;
== END ==
LOC: CARD 07:00
PROVIDERS: ATTEND Nurse Practitioner Family
DX: I10 Essential (primary) hypertension (principal); R06.09 Other forms of dyspnea; R06.02 Shortness of breath
CPT/HCPCS: 78452; 93017; A9502

== ENCOUNTER 2022-04-18 11:42 | Day surgery (SDC) | payer BC ==
[2022-04-18] VITALS (12 sets, daily range): BP systolic 140–174; BP diastolic 81–98
[~2022-04-18] VITALS: Ht 182.9 cm; Wt 76.7 kg
[~2022-04-18 11:42] MED LIST changes: -CATHETER FLUSH 10 ML SYR IVP PRN; -REGADENOSON 0.4 MG/5 ML SYR (LEXISCAN) IV ONE
[2022-04-18] MEDS ORDERED: NS IV 1000 ML 1,000 ML IV SCH ×2 (12:00→16:30)
[2022-04-18] MEDS ORDERED: LIDOCAINE 1% INJ 20 ML VIAL ONE (12:00)
[2022-04-18] MEDS ORDERED: NS IV 1000 ML 1,000 ML ONE (12:01)
[2022-04-18] MEDS ORDERED: HEParin (CATH LAB) 2,000 ML IV ONE (12:01)
[2022-04-18 12:27] LABS: HEMATOCRIT 44 % (40-54); HEMOGLOBIN 14.4 g/dL (13.3-17.7); MEAN CORPUSCULAR HEMOGLOBIN 31 pg (25-34); MEAN CORPUSCULAR HGB CONC 33 g/dL (32-36); MEAN CORPUSCULAR VOLUME 94 fL (80-99); MEAN PLATELET VOLUME 11.2 fL (9.0-12.2); PLATELET COUNT 197 10^3/uL (130-400); WHITE BLOOD COUNT 6.5 10^3/uL (4.3-11.0)
[2022-04-18 12:37] LABS: INR 0.9 (0.8-1.4); PROTHROMBIN TIME PATIENT 12.8 SEC (12.2-14.7)
[2022-04-18 12:43] LABS: ALBUMIN 3.5 GM/DL (3.2-4.5); BILIRUBIN,TOTAL 0.5 MG/DL (0.1-1.0); CALCIUM 9.7 MG/DL (8.5-10.1); CREATININE SERUM 1.06 MG/DL (0.60-1.30); POTASSIUM 4.4 MMOL/L (3.6-5.0); TOTAL PROTEIN 7.2 GM/DL (6.4-8.2)
[2022-04-18] MEDS ORDERED: ASPI325T32 PO (12:45)
[2022-04-18] MEDS ORDERED: METO200T48 PO (12:45)
[2022-04-18] MEDS ORDERED: SPIR25TA5 PO (12:45)
[2022-04-18] MEDS ORDERED: HYDR25TA4 PO (12:45)
[2022-04-18] MEDS ORDERED: AMLO-250 PO (12:45)
[2022-04-18] MEDS ORDERED: MTP100TCR PO (12:46)
[2022-04-18] MEDS ORDERED: fentaNYL INJ 100 MCG/2 ML AMP ONE (14:51)
[2022-04-18] MEDS ORDERED: MIDAZOLAM 5 MG/5 ML (VERSED) VIAL ONE (14:51)
[2022-04-18] MEDS ORDERED: HEParin 1000 UNIT/ML (10ML VIAL) FOR BOLUS ONE (15:57)
--- NOTE | 2022-04-18 16:28 | Cardiac Procedure Note-CS/ASA ---
Pre-Procedure Note Pre-Op Procedure Note Date of Available H&P: Apr 14, 2022 Date H&P Reviewed: Apr 18, 2022 Time H&P Reviewed: 14:00 History & Physical: H&P Reviewed, No changes noted Conscious Sedation Pre-Proced ASA Score 3 For ASA 3 and 4: Consider anesthesia and medical clearance. Also, for patients with a history of failed moderate sedation consider anesthesia. Airway Lungs Heart ASA score ASA 1: a normal healthy patient ASA 2: a patient with a mild systemic disease (mid diabetes, controlled hypertension, obesity ASA 3: a patient with a severe systemic disease that limits activity (angina, COPD, prior Myocardial infarction) ASA 4: a patient with an incapacitating disease that is a constant threat to life (CHF, renal failure) ASA 5: a moribund patient not expected to survive 24 hrs. (ruptured aneurysm) ASA 6: a declared brain- patient whose organs are being harvested. For emergent operations, add the letter E after the classification Mallampati Classification Grade 2 Sedation Plan Analgesia, Amnesia, Plan communicated to team members The patient is an appropriate candidate to undergo the planned procedure, sedation, and anesthesia. The patient immediately re-assessed prior to indication. LOLA KENNY MD FACP FAC CCDS Apr 18, 2022 16:28
[2022-04-18] MEDS ORDERED: PATIENT MAY USE OWN MEDS, ALL PO SCH (16:30)
[2022-04-18] MEDS ORDERED: ATOR40TA70 PO (16:32)
--- NOTE | 2022-04-18 16:32 | Discharge Inst-Cardiology ---
Discharge Inst-Cardiac Discharge Medications New Medications: Atorvastatin Calcium (Atorvastatin Calcium) 40 Mg Tablet 40 MG PO DAILY for 30 Days, #30 TAB 3 Refills Continued Medications: Amlodipine Besylate (Amlodipine Besylate) 5 Mg Tablet 10 MG PO DAILY, TAB TAKES 2 (5MG) TABS Aspirin (Aspirin EC) 325 Mg Tablet.dr 325 MG PO DAILY, TAB Hydrochlorothiazide (Hydrochlorothiazide) 25 Mg Tablet 25 MG PO DAILY, TAB Metoprolol Succinate (Metoprolol Succinate) 100 Mg Tab.er.24h 200 MG PO DAILY, TAB TAKES 2 (100MG) TABS Spironolactone (Spironolactone) 25 Mg Tablet 25 MG PO DAILY, TAB LOLA KENNY MD FACP FAC CCDS Apr 18, 2022 16:32
--- NOTE | 2022-04-18 16:33 | Discharge Inst-Post CATH ---
Discharge Inst-CATH/EP Post Cardiac Cath/EP D/C Inst F/u with Dr Fabian in one month ACTIVITY * Go Home directly and rest. * Limit activity of the leg (or wrist if it was used) for 7 days including aerobics, swimming, jogging, bicycling, etc. * Restrict stair-climbing for 7 days if possible, if not, climb up with your non-cath leg, then bring together on the same step. * Avoid lifting, pushing, pulling or excessive movement of the affected extremity for 7 days. * Customary sexual activity may be resumed after 2 days-use caution not to use a position that strains or causes pain to the affected extremity. * No driving for 24 hours. * NO SMOKING. * Avoid straining for bowel movements for 7 days. * Gentle walking on level ground is allowed. * Returning to work will depend on the type of procedure and the results. Your doctor will discuss this with you. CALL YOUR DOCTOR FOR ANY OF THE FOLLOWING: *If bleeding from the puncture site occurs- Apply gentle pressure to site with clean cloth and call your doctor or EMS. * If a knot or lump forms under the skin, increases in size, or causes pain. * If bruising appears to be worsening or moving further down your leg instead of disappearing. * Temperature above 101 F. CARE OF YOUR GROIN INCISION; * Bruising or purple discoloration of the skin near the puncture site is common. * You may shower only, no bathtub bathing for 5 days. Be careful to avoid slipping as your leg may feel stiff. * If a closure device was used on your femoral artery, please see the attached guide regarding care of the device and your leg. * Leave dressing on FOR 24 hours. CARE OF YOUR WRIST INCISION; * Bruising or purple discoloration of the skin near the puncture site is common. * You may shower. * DO NOT submerge wrist. * Leave dressing on FOR 24 hours. LOLA FABIAN MD FACP [facility] CCDS Apr 18, 2022 16:32
--- NOTE | 2022-04-18 16:35 | Discharge Inst-Post Device ---
Discharge Inst-Post Device Heart Healthy Diet Do not lift arm on side of device placement above head for 4 weeks. Do not push and pull heavy objects for 4 weeks. Activity as tolerated. No driving for one week. Leave dressing on until follow up at the office. LOLA KENNY MD FACP FACC CCDS Apr 18, 2022 16:34
--- NOTE | 2022-04-18 16:46 | Cardiac Cath Report ---
CARDIAC CATHETERIZATION DATE OF PROCEDURE: 04/18/22 INDICATION: Recently diagnosed dilated cardiomyopathy on MPI PROCEDURES PERFORMED: 1. LHC and coronary angio PROCEDURE DESCRIPTION: After informed consent and in the fasting state, left heart catheterization was performed through the R femoral artery utilizing a 6 Polish system by percutaneous approach. Started with a 5F sheath that was later changed to 6F 45 cm sheath because of marked tortuosity of the iliac arteries that are not allowing torquing of catheters. JL3.5 for L cor angio and JR4 for R cor angio. 5F pigtail for L heart cath and cor angio. Attempt at iFR of proximal LCx unsuccessful because of extreme angulations (Two 90 deg bends a short proximal segment of the LCx). Angio of R fem after long 6F sheath replaced with small 6F sheath. Subsequently, hemostasis with Mynx. HEMODYNAMICS: LVEDP: 15 mmHg Ascending aortic pressure: 135/68 CORONARY ANGIOGRAPHY: Left main coronary artery: No significant disease Left anterior descending coronary artery: Diffuse mild plaque Left circumflex coronary artery: 50% proximal Right coronary artery: Dominant. Diffuse mild plaque LV ANGIOGRAM Mild global hypokinesis. LVEF approx 45-50% IMPRESSION: 1. Mild to mod CAD 2. LVEDP 15 mmHg 3. LVEF 45-50% LOLA KENNY MD FACP [facility] Apr 18, 2022 16:45
== END 2022-04-18 20:35 | disposition home or self-care (01) ==
LOC: CATH 11:42 → ICU 17:01 → CATH 20:35
PROVIDERS: ATTEND Internal Medicine Cardiovascular Disease
DX: I42.0 Dilated cardiomyopathy (principal); I25.10 Atherosclerotic heart disease of native coronary artery without angina pectoris; I11.0 Hypertensive heart disease with heart failure; I50.9 Heart failure, unspecified; R63.4 Abnormal weight loss; Z82.49 Family history of ischemic heart disease and other diseases of the circulatory system; F17.210 Nicotine dependence, cigarettes, uncomplicated
CPT/HCPCS: 80053; 80061; 85027; 85610; 85730; 87081; 93005; 93458; 93571; C1760; C1769 ×2; C1894 ×3; 36415

== ENCOUNTER 2022-05-10 05:50 | Outpatient (CLI) | payer BC ==
[~2022-05-10] VITALS: Ht 182.9 cm; Wt 80.8 kg
[~2022-05-10 05:50] MED LIST changes: +ASPI325T32 PO; +ATOR40TA70 PO; +METO200T48 PO
[2022-05-10] MEDS ORDERED: DOXA2TAB2 PO (10:52)
[2022-05-10] MEDS ORDERED: ATOR40TA70 PO (10:52)
[2022-05-10] MEDS ORDERED: METO200T48 PO (10:52)
== END 2022-05-10 10:55 | disposition home or self-care (01) ==
LOC: PREOP 05:50
PROVIDERS: ATTEND Surgery
DX: Z01.818 Encounter for other preprocedural examination (principal)

== ENCOUNTER 2022-05-23 08:20 | Day surgery (SDC) | payer BC ==
[~2022-05-23] VITALS: Ht 182 cm; Wt 80.8 kg
[~2022-05-23 08:20] MED LIST changes: +DOXA2TAB2 PO
[2022-05-23] MEDS ORDERED: LACTATED RINGERS 1,000 ML IV STA (08:23)
[2022-05-23] MEDS ORDERED: HURRICAINE EXT TUBE (BENZOCAINE) XX PRN (08:30)
--- NOTE | 2022-05-23 08:44 | Progress Note-Pre Operative ---
Pre-Operative Progress Note Date H&P Reviewed: May 23, 2022 Time H&P Reviewed: 08:43 History & Physical: H&P Reviewed, Patient Examed, No changes noted Pre-Operative Diagnosis: unintentional weight loss DARBY FLOYD DO May 23, 2022 08:44
[2022-05-23 08:45] VITALS: BP 191/91
[2022-05-23] MEDS ORDERED: PROPOFOL INJECTION 50 ML IV ONE (09:31)
--- NOTE | 2022-05-23 10:06 | Anesthesia-General Post-Op ---
MAC Patient Condition Mental Status/LOC: Same as Preop Cardiovascular: Satisfactory Nausea/Vomiting: Absent Respiratory: Satisfactory Pain: Controlled Complications: Absent Post Op Complications Complications None Follow Up Care/Instructions Patient Instructions None needed. Anesthesiology Discharge Order Discharge Order Patient is doing well, no complaints, stable vital signs, no apparent adverse anesthesia problems. No complications reported per nursing. ANDREW ROSENBERG CRNA May 23, 2022 10:06
--- NOTE | 2022-05-23 10:08 | Progress Note-Post Operative ---
Post-Operative Progess Note Surgeon (s)/Fixed Wing Aircraft Crew Chief (s) Surgeon DARBY FLOYD DO Fixed Wing Aircraft Crew Chief: na Pre-Operative Diagnosis unintentional weight loss Post-Operative Diagnosis Colon polyps, gastritis, duodenitits, diverticulosis, hiatal hernia Procedure & Operative Findings Date of Procedure 05/23/22 Procedure Performed/Findings colonoscopy with biopsies and polypectomy, EGD Anesthesia Type per puppet developer Estimated Blood Loss Estimated blood loss (mL): 0 Specimens/Packing Specimens Removed colon polyps, antrum body and GE junction biopsies DARBY FLOYD DO May 23, 2022 10:08
[2022-05-23 10:10] VITALS: BP 141/72
[2022-05-23] MEDS ORDERED: PANT40TA2 PO (10:11)
--- NOTE | 2022-05-23 10:12 | Discharge Inst-Simple/Standard ---
Discharge Inst-Standard Reconcile Patient Problems Problems Reviewed?: Yes Discharge Medications New, Converted or Re-Newed RX: Transmitted to Pharmacy Patient Instructions/Follow Up Plan of Care/Instructions/FU: follow up in [address] Rajan Activity as Tolerated: Yes Discharge Diet: Regular Diet (high fiber) DARBY RAJAN DO May 23, 2022 10:12
[2022-05-23 10:15] VITALS: BP 150/76
[2022-05-23 10:20] VITALS: BP 156/78
[2022-05-23 10:48] VITALS: BP 156/78
--- NOTE | 2022-05-23 14:56 | OPERATIVE REPORT ---
DATE OF SERVICE: 05/23/2022 PREOPERATIVE DIAGNOSIS: Unintentional weight loss. POSTOPERATIVE DIAGNOSES: Duodenitis, gastritis, small hiatal hernia, diverticulosis, colon polyps. PROCEDURES: EGD with biopsies, colonoscopy with hot biopsy polypectomy and snare polypectomy. SURGEON: Darby Rajan DO ANESTHESIA: Per [employer]. ESTIMATED BLOOD LOSS: None. COMPLICATIONS: None. INDICATIONS: The patient is a 61-year-old with unintentional weight loss. He understands risks and benefits of procedures and wished to proceed. Consent was signed in chart. DESCRIPTION OF PROCEDURE: The patient was taken to endoscopy suite, placed in left lateral recumbent position. Timeout was performed. Scope was inserted in the mouth, down the esophagus, stomach, into the duodenum without difficulty, duodenitis appearance, no polyps, masses or ulcerations. Biopsy of duodenum was obtained. Scope was slowly retracted back to the stomach where it was further insufflated. Gastritis appearance. Biopsy of the antrum and body were obtained. Scope was retroflexed noting small hiatal hernia, no other pathology. Scope was returned to its normal position, slowly withdrawn until distal esophagus. Biopsy of GE junction was obtained. Scope was slowly retracted back until completely removed. Digital rectal exam was performed. No palpable polyps, masses or ulcerations. Scope was inserted in the rectum, advanced all the way to the cecum with minimal difficulty. Prep was adequate. Scope was then slowly retracted back. No polyps, masses or ulcerations in the cecum, ascending, transverse and descending colon. Diverticulosis present in the sigmoid colon. The sigmoid colon has small polyp was present, which hot biopsy polypectomy was performed. Scope was then slowly retracted back to the rectum where the larger polyp was present, which snare polypectomy was performed. Also very small polyp, which was fulgurated. Scope was inserted multiple times, was slowly retracted and no other pathology noted. Scope was slowly retracted until completely removed. The patient tolerated the procedure well without complications, taken to recovery room in stable condition. RECOMMENDATIONS: The patient will need repeat colonoscopy in one year due to large polyp in the rectum. He will follow up in the office in 2 weeks. We will await biopsy results. We will start him on Protonix 40 mg daily. Further recommendation pending biopsy results. If imaging studies have been performed, we would consider CT scan of the chest, abdomen and pelvis if they have not been done already to evaluate for other causes of weight loss. Job ID: [id number] DocumentID: [id number] Dictated Date: 05/23/2022 10:10:57 Junior Accountant Date: 05/23/2022 14:54:00 Dictated By: DARBY RAJAN DO
== END 2022-05-23 11:08 | disposition home or self-care (01) ==
LOC: ENDO 08:20
PROVIDERS: ATTEND Surgery
DX: K29.80 Duodenitis without bleeding (principal); D12.8 Benign neoplasm of rectum; K29.70 Gastritis, unspecified, without bleeding; K44.9 Diaphragmatic hernia without obstruction or gangrene; K57.30 Diverticulosis of large intestine without perforation or abscess without bleeding; K63.5 Polyp of colon; K31.89 Other diseases of stomach and duodenum; R63.4 Abnormal weight loss; Z68.24 Body mass index [BMI] 24.0-24.9, adult; F17.290 Nicotine dependence, other tobacco product, uncomplicated; Z80.0 Family history of malignant neoplasm of digestive organs

== ENCOUNTER 2022-09-20 20:27 | Outpatient (CLI) | payer BC ==
[~2022-09-20 20:27] MED LIST changes: +PANT40TA2 PO
== END 2022-09-21 06:50 | disposition home or self-care (01) ==
LOC: SLEEP 20:27
PROVIDERS: ATTEND Otolaryngology Otolaryngology/Facial Plastic Surgery
DX: G47.33 Obstructive sleep apnea (adult) (pediatric) (principal)
CPT/HCPCS: 95810